=== PATIENT | female | born 1945 | race Two or more races ===

== ENCOUNTER → 2021-01-22 14:03 | Outpatient (BNVA) | payer MEDICARE, SELFPAY | PROVIDERS: Visit Provider Physician Assistant | DX: M16.11 Unilateral primary osteoarthritis, right hip (principal) | CPT/HCPCS: 99212 ==

== ENCOUNTER 2021-01-27 07:40 | Inpatient (IN) | payer MEDICARE, SELFPAY ==
--- NOTE | 2021-01-22 10:11 | P.CONAN_ITS ---
Documented by User: Surekhaher Cardenasney 01/26/21 10:34 HPI - Anesthesia Eval Consult details Narrative: 75yo F for Right Hip Total Replacement PCP cleared [facility] Past Medical History Medical History Arthritis COVID-19 vaccine series completed Depression Elevated cholesterol Hypothyroidism Family History Family history of problems with anesthesia: No Surgical History Surgical History History of appendectomy Hx of cataract extraction Hx of hysterectomy History of Problems with Anesthesia: No Social History Social History Are you a primary home visit field care manager to a significant other at home: No Do you presently have visiting nurse or other home services: No Smoking Status: Never smoker Use of substances other than those prescribed or required for medical reasons: No Have you been hit, kicked, punched, or otherwise hurt by someone within the past year? If so, by whom?: No [employer] Healthcare Practices: prayer Are you DNR?: No Advance Directives: No Advance Directives Information Provided: No Advance Directives on File: No Recently lost weight without trying: Unsure How much weight loss: 2-13 pounds Eating poorly because of decreased appetite: No Nutrition screen score: 3 Meds Allergies Allergy/AdvReac Type Severity Reaction Status Date / Time No Known Allergies Allergy Verified 01/27/21 08:03 Home Medications Medication Instructions Recorded Confirmed Last Taken Type atorvastatin 1 tab PO DAILY 01/21/21 01/21/21 Unknown History levothyroxine [Euthyrox] 1 tab PO DAILY 01/21/21 01/21/21 Unknown History venlafaxine 1 cap PO DAILY 01/21/21 01/21/21 Unknown History calcium carbonate-vitamin D3 1 tab PO DAILY 01/22/21 01/22/21 Unknown History [Calcium 600 + D(3)] vit C,U-Ei-mmujs-lutein-zeaxan 2 tab PO DAILY 01/22/21 01/22/21 Unknown History [PreserVision AREDS-2] Exam Exam Date and Time: January 22, 2021 1011 Pertinent Lab Results Pertinent Lab Results: Lab Results 01/22/21 01/22/21 01/22/21 Range/Units 12:30 13:35 13:35 WBC 6.6 (4.8-10.8) X10*3/uL RBC 4.33 (4.20-5.50) X10*6/uL Hgb 12.9 (12.0-16.0) g/dl Hct 39.1 (37-47) % MCV 90.3 (80-98) fL MCH 29.8 (27.0-33.0) pg MCHC 33.0 (31.0-35.0) g/dl RDW 12.4 (11.0-16.0) % Plt Count 324 (160-400) X10*3/uL MPV 10.5 (9.4-12.3) fL Immature Gran % (Auto) 0.2 (0.0-0.4) % Neut % (Auto) 77.5 H (45-73) % Lymph % (Auto) 16.4 L (20-40) % [place] % (Auto) 4.8 (2-11) % Eos % (Auto) 0.6 (0-4) % Baso % (Auto) 0.5 (0-2) % Lymph # (Auto) 1.1 L (1.2-4.9) X10*3/uL [place] # (Auto) 0.3 (0.1-1.2) X10*3/uL Eos # (Auto) 0.0 (0.0-0.4) X10*3/uL Baso # (Auto) 0.0 (0.0-0.2) X10*3/uL Abs Immat Gran (auto) 0.01 (0.00-0.03) X10*3/uL Absolute Neuts (auto) 5.2 (2.0-8.3) X10*3/uL Absolute Nucleated RBC 0.000 (0.0-0.012) X10*3/uL Nucleated RBC % (auto) 0.0 (0.0-0.2) /100WBC Sodium (135-145) mmol/L Potassium (3.3-5.1) mmol/L Chloride (96-108) mmol/L Carbon Dioxide (22-29) mmol/L Anion Gap (12-20) BUN (9-16) mg/dL Creatinine (0.5-1.4) mg/dL Estim Creat Clear Calc Estimated GFR Random Glucose (60-115) mg/dL Calcium (8.4-10.2) mg/dL Nasal Screen MRSA (PCR) NEGATIVE (Negative) Nasal S. aureus Screen NEGATIVE (Negative) Nasal MRSA/S.aureus Interp SEE NOTE Blood Type O Positive Antibody Screen NEGATIVE 01/22/21 Range/Units 13:35 WBC (4.8-10.8) X10*3/uL RBC (4.20-5.50) X10*6/uL Hgb (12.0-16.0) g/dl Hct (37-47) % MCV (80-98) fL MCH (27.0-33.0) pg MCHC (31.0-35.0) g/dl RDW (11.0-16.0) % Plt Count (160-400) X10*3/uL MPV (9.4-12.3) fL Immature Gran % (Auto) (0.0-0.4) % Neut % (Auto) (45-73) % Lymph % (Auto) (20-40) % [place] % (Auto) (2-11) % Eos % (Auto) (0-4) % Baso % (Auto) (0-2) % Lymph # (Auto) (1.2-4.9) X10*3/uL [place] # (Auto) (0.1-1.2) X10*3/uL Eos # (Auto) (0.0-0.4) X10*3/uL Baso # (Auto) (0.0-0.2) X10*3/uL Abs Immat Gran (auto) (0.00-0.03) X10*3/uL Absolute Neuts (auto) (2.0-8.3) X10*3/uL Absolute Nucleated RBC (0.0-0.012) X10*3/uL Nucleated RBC % (auto) (0.0-0.2) /100WBC Sodium 144 (135-145) mmol/L Potassium 4.2 (3.3-5.1) mmol/L Chloride 107 (96-108) mmol/L Carbon Dioxide 27 (22-29) mmol/L Anion Gap 14 (12-20) BUN 17 H (9-16) mg/dL Creatinine 0.90 (0.5-1.4) mg/dL Estim Creat Clear Calc 59.8 Estimated GFR > 60 Random Glucose 96 (60-115) mg/dL Calcium 10.0 (8.4-10.2) mg/dL Nasal Screen MRSA (PCR) (Negative) Nasal S. aureus Screen (Negative) Nasal MRSA/S.aureus Interp Blood Type Antibody Screen Narrative Narrative: EKG 12/2020 at outside provider: SR with LAE Airway Mallampati Class: II TM Dist: >3cm Neck ROM: Full Loose/Missing/Broken Teeth: Yes (1 x implant left upper molar, crowned molars) Heart: RRR Lungs: CTAB Assessment and Plan Assessment Anesthesia Assessment: Anesthesia Plan Discussed and PAT Visit Documented by User: Laxmi Kessler 01/27/21 10:02 [facility] Past Medical History Medical History Arthritis COVID-19 vaccine series completed Depression Elevated cholesterol Hypothyroidism Surgical History Surgical History History of appendectomy Hx of cataract extraction Hx of hysterectomy Social History Social History Are you a primary home visit field care manager to a significant other at home: No Do you presently have visiting nurse or other home services: No Smoking Status: Never smoker Use of substances other than those prescribed or required for medical reasons: No Have you been hit, kicked, punched, or otherwise hurt by someone within the past year? If so, by whom?: No Judaism Healthcare Practices: prayer Are you DNR?: No Advance Directives: No Advance Directives Information Provided: No Advance Directives on File: No Recently lost weight without trying: Unsure How much weight loss: 2-13 pounds Eating poorly because of decreased appetite: No Nutrition screen score: 3 Meds Allergies Allergy/AdvReac Type Severity Reaction Status Date / Time No Known Allergies Allergy Verified 01/27/21 08:03 Home Medications Medication Instructions Recorded Confirmed Last Taken Type atorvastatin 1 tab PO DAILY 01/21/21 01/21/21 Unknown History levothyroxine [Euthyrox] 1 tab PO DAILY 01/21/21 01/21/21 Unknown History venlafaxine 1 cap PO DAILY 01/21/21 01/21/21 Unknown History calcium carbonate-vitamin D3 1 tab PO DAILY 01/22/21 01/22/21 Unknown History [Calcium 600 + D(3)] vit C,H-Lh-gaflv-lutein-zeaxan 2 tab PO DAILY 01/22/21 01/22/21 Unknown History [PreserVision AREDS-2] Exam Airway Mallampati Class: III TM Dist: >3cm Neck ROM: Full Loose/Missing/Broken Teeth: No Assessment and Plan Assessment Anesthesia Assessment: Anesthesia Plan Discussed and Chart Reviewed Final Anesthetic Review NPO: Yes ASA Class: II Final Preanesthetic Review: Meds/Allgs Chart Reviewed, Consent Obtained/Reviewed and Anes Risks/Benef Reviewed Patient Risk: Low Procedure Risk: Intermediate Anesthetic Plan Anesthetic Plan: GA Disposition: Standard PACU
[2021-01-22 12:24] VITALS: BP 115/56; PULSE 91; RESP 16; O2SAT 97; BMI 27.7
[2021-01-22 13:56] LABS: Basophils Percent Auto 0.5 % (0-2); Eosinophils Percent Auto 0.6 % (0-4); Hematocrit 39.1 % (37-47); Hemoglobin 12.9 g/dl (12.0-16.0); Imm Gran Abs Auto 0.01 X10*3/uL (0.00-0.03); Imm Gran Pct Auto 0.2 % (0.0-0.4); Lymphocytes Absolute Auto 1.1 X10*3/uL (1.2-4.9); Lymphocytes Percent Auto 16.4 % (20-40); MANUAL DIFF FLAG NO; Mean Corpuscular Hemoglobin 29.8 pg (27.0-33.0); Mean Corpuscular Volume 90.3 fL (80-98); Mean Platelet Volume 10.5 fL (9.4-12.3); Monocytes Absolute Auto 0.3 X10*3/uL (0.1-1.2); Monocytes Percent Auto 4.8 % (2-11); Neutrophils Absolute Auto 5.2 X10*3/uL (2.0-8.3); Neutrophils Percent Auto 77.5 % (45-73); Platelet Count 324 X10*3/uL (160-400); Red Blood Count 4.33 X10*6/uL (4.20-5.50); Red Cell Distribution Width 12.4 % (11.0-16.0); White Blood Count 6.6 X10*3/uL (4.8-10.8)
[2021-01-22 14:42] LABS: Anion Gap 14 (12-20); Blood Urea Nitrogen 17 mg/dL (9-16); Carbon Dioxide 27 mmol/L (22-29); Chloride 107 mmol/L (96-108); Creatinine Clr Calc Pharmacy 59.8; Estimated Glomerular Filt Rate > 60; Glucose Random 96 mg/dL (60-115); Potassium 4.2 mmol/L (3.3-5.1); Sodium 144 mmol/L (135-145)
[2021-01-22 15:20] LABS: MRSA Nasal PCR NEGATIVE (Negative); SA Nasal PCR NEGATIVE (Negative)
[2021-01-27] VITALS (19 sets, daily range): BP systolic 117–176; BP diastolic 62–91; PULSE 87–104; RESP 10–20; TEMP 36.2–37.2; O2SAT 94–100
--- NOTE | ~2021-01-27 | XR_ITS ---
EXAMINATION: XR PELVIS CLINICAL INFORMATION: Right hip replacement COMPARISON: Previous right hip x-ray October 2019 TECHNIQUE: AP view of the pelvis. FINDINGS: There is a new right hip replacement in satisfactory position. No fracture or dislocation is seen. Left hip joint is unremarkable. Bones of the pelvis are unremarkable. There are postoperative changes to the soft tissues. XR/XR pelvis 1-2V IMPRESSION: Satisfactory appearance of right hip replacement.
[2021-01-27 08:30] LABS: COVID-19 Test Negative (Negative); IDNOW Serial# 08D9AD1C
[2021-01-27] MEDS: Gabapentin 600 MG TABLET PO (08:36)
[2021-01-27] MEDS: oxyCODONE HCl ER 10 MG TAB.ER.12H PO (08:37)
[2021-01-27] MEDS: Lactated Ringers 1,000 ML 100 ML IVCONT (08:59)
--- NOTE | 2021-01-27 09:52 | MHC.SHP ---
Pre-Procedural Eval Section A The patient is an INPATIENT: No Changes since office visit: Yes Patient answered all questions; No Cold of Flu in the past 2 weeks, No New Medical Problems and No Changes in Medication The History & Physical has been completed within 30 days and I have reviewed it.: Yes Section B Chief Complaint: RIGHT TOTAL HIP ARTHROPLASTY Allergies: Allergies Allergy/AdvReac Type Severity Reaction Status Date / Time No Known Allergies Allergy Verified 01/27/21 08:03 Plan I have reviewed the history and physical and performed a pertinent physical examination on my patient. No changes have occurred unless specified.
--- NOTE | 2021-01-27 12:37 | P.OP_ITS ---
Operative Note Operative Note Date of Service: 01/27/21 Narrative: Pre-op diagnosis: right hip OA Post-op diagnosis: same Procedure: Right EDI Implants: Trident2 50 w/ 10 post lip and 32 + 4 ceramic head and accolade2#3 Surgeon: Micah Miller MD Anesthesia: GETA and local Was an Acute Care Clinical Nurse Specialist used for this Procedure?: Yes Acute Care Clinical Nurse Specialist: Jeanine Bragg Estimated blood loss (mL): 150 IV fluids (mL): 1,000 Pathology: other Condition: stable Disposition: PACU Procedure in detail: Patient was brought to the operating room and placed in the left lateral decubitus position on the surgical table. She was prepped and draped in standard sterile fashion and a time out was called to indentify proper site, proper procedure and IV antibiotics per weight were administered. All bony prominences were well padded and the limb was prepped and draped in standard sterile fashion. Time-out was called to identify proper site procedure proper surgeon IV antibiotics and 1 g of trans to make acid were administered. I began by making a curvilinear incision over the posterolateral aspect of the greater trochanter. Dissection was taken down to the tensor fascia which was incised in line with the incision and a Charnley retractor was placed. Hip was internally rotated and the external rotators were identified. The vessels were cauterized and a full-thickness capsular/external rotator layer was developed starting just proximal to the piriformis. Dull Hohmann retractor was placed underneath the neck in the hip was dislocated. A neck cut was made 1 cm proximal to the lesser trochanter and the head and neck were removed and measured on the back table. Placed my anterior-posterior acetabular retractors and performed a labrectomy. The head was measured on the back tablt as a 44 and I started reaming with a 42 and then sequentially reamed up to a size __50_ and impacted a 50 cup at approximately 45 degrees of inclination and 25 degrees of version. I then placed a 10 degree posterior lipped liner and turned my attention to the femur. All I used cautery to identify the piriformis start site and used this as a starting point for my nasrinie cutter. I then used a Charnley awl to identify the canal and a curved curette to remove the lateral bone. I then sequentially broached in the patient's natural version to a size __3__ and placed my trial implants. I took the hip through range of motion with a +4 head and I was very happy with the stability and length. Therefore removed all instrumentation copiously irrigated placed my final femoral implant. I again took the hip through range of motion and was satisfied with the stability and length and placed my final +4 32 ceramic head and reduced the hip. I then irrigated for 3 minutes with iodine and placed 1 g of local TXA. I then performed a capsular closure with FiberWire, Jovan's fascia with 0 Vicryl, subcuticular with 2-0 vicryl and skin with urban. Patient was placed into a sterile dressing. Radiographs were obtained at the completion of the case and I was satisfied with the component position. Patient was extubated brought to the recovery room in stable condition.
[2021-01-27] MEDS: HYDROmorphone HCl 0.5 MG/0.5 ML SYRINGE IVPUSH (12:50)
[2021-01-27] MEDS: ceFAZolin Sodium/Dextrose,Iso 2 GM/50 ML PIGGYBACK IV (15:55)
[2021-01-27] MEDS: Dextrose 5 % and 0.45 % NaCl 1,000 ML 80 ML IVCONT (16:53)
[2021-01-27] MEDS: 0.9 % Sodium Chloride Flush 3 ML SYRINGE IVFLUSH (16:54)
--- NOTE | 2021-01-27 17:25 | P.CONIM_ITS ---
History of Present Illness Data of Consult Service Date: 01/27/21 Requesting physician: Micah Miller Primary Care Provider: Rosemary Almonte MD HPI Reason for consult: med consult 75-year-old female with hyperlipidemia, hypothyroidism, osteoarthritis of the hip that has not responded to medical therapy and therefore the patient was scheduled for operative fix today. She had a right total hip arthroplasty earlier today and is doing well postoperatively. She has no active complaint at this time: No shortness of breath, no chest pain, no fever. She is fully vaccinated with COVID vaccine as of middle of December. Review of Systems Review of Systems: Gen: no fever Resp: no sob, no cough CV: no chest, no MORALEZ, no leg edema GI: No n/v, no abd pain Neuro: No confusion MSK: pain in the operative hip REPLACED BY [facility] Medical History (Updated 01/27/21 @ 17:29 by Juan Moise MD) Arthritis COVID-19 vaccine series completed Depression Elevated cholesterol HLD (hyperlipidemia) Hypothyroidism Family history: reviewed and not pertinent Surgical History History of appendectomy Hx of cataract extraction Hx of hysterectomy Social History Are you a primary care attendant to a significant other at home: No Do you presently have visiting nurse or other home services: No Smoking Status: Never smoker Use of substances other than those prescribed or required for medical reasons: No Currently Displaying Signs/Symptoms of Drug Intoxication Withdrawal: No Have you been hit, kicked, punched, or otherwise hurt by someone within the past year? If so, by whom?: No [employer] Healthcare Practices: prayer Are you DNR?: No Advance Directives: No Advance Directives Information Provided: No Advance Directives on File: No Do you have thoughts of harming others: None Recently lost weight without trying: Unsure How much weight loss: 2-13 pounds Eating poorly because of decreased appetite: No Nutrition screen score: 3 Meds Allergies Allergy/AdvReac Type Severity Reaction Status Date / Time No Known Allergies Allergy Verified 01/27/21 08:03 Active Medications: Current Medications Generic Name Dose Route Start Last Admin Trade Name Freq PRN Reason Stop Dose Admin Acetaminophen 650 mg 01/27/21 16:30 Acetaminophen 325 Mg Tablet PO Q6H PRN Pain, Mild (Pain Scale 1-3) Celecoxib 200 mg 01/27/21 21:00 Celecoxib 200 Mg Capsule PO BID [facility] Docusate Sodium 100 mg 01/27/21 16:30 Docusate Sodium 100 Mg Capsule PO DAILY PRN Constipation Hydromorphone HCl 0.25 mg 01/27/21 16:30 Hydromorphone Hcl 0.5 Mg/0.5 Ml Syringe IVPUSH Q4H PRN Pain, Severe (Pain Scale 7-10) Dextrose/Sodium Chloride 1,000 mls @ 80 mls/hr 01/27/21 16:30 01/27/21 16:53 D51/2ns IVCONT 80 mls/hr .[id number] JULIO Administration Naloxone HCl 0.2 mg 01/27/21 16:30 Naloxone Hcl 0.4 Mg/Ml Vial IVPUSH Q2M PRN Excessive sedation or RR < 8 Ondansetron HCl 4 mg 01/27/21 16:30 Ondansetron Hcl 4 Mg/2 Ml Vial IVPUSH Q8H PRN Nausea and Vomiting Oxycodone HCl 10 mg 01/27/21 16:30 Oxycodone Hcl Immed Release 5 Mg Tablet PO Q4H PRN Pain, Moderate (Pain Scale 4-6 Sodium Chloride 3 ml 01/27/21 16:30 01/27/21 16:54 0.9 % Sodium Chloride Flush 3 Ml Syringe IVFLUSH 3 ml QSHIFT JULIO Administration Home Medications Medication Instructions Recorded Confirmed Last Taken Type atorvastatin 1 tab PO DAILY 01/21/21 01/21/21 Unknown History levothyroxine [Euthyrox] 1 tab PO DAILY 01/21/21 01/21/21 01/27/21 06:00 History venlafaxine 1 cap PO DAILY 01/21/21 01/21/21 Unknown History calcium carbonate-vitamin D3 1 tab PO DAILY 01/22/21 01/22/21 Unknown History [Calcium 600 + D(3)] vit C,W-Ci-qduay-lutein-zeaxan 2 tab PO DAILY 01/22/21 01/22/21 Unknown History [PreserVision AREDS-2] latanoprost 1 drp OPHTHALMIC-RIGHT BEDTIME 01/27/21 01/27/21 Unknown History Physical Exam Vital Signs and Narrative: Vital Signs: Last Vital Signs Temp 97.3 F 01/27/21 16:27 Pulse 94 01/27/21 16:27 Resp 20 01/27/21 16:27 BP 117/86 01/27/21 16:27 Pulse Ox 98 01/27/21 16:27 Body Mass Index 27.7 Constitutional Awake and Alert, No apparent distress Neck Supple, No lymphadenopathy Cardiovascular RRR, No M/R/G, S1 S2, No S3 S4, No pedal edema Respiratory Lungs clear, No respiratory distress Gastrointestinal Non tender, Non-distended Skin surgical wound dry clean and intact. Neurological Alert & oriented x3 Psychological Appropriate affect Results Labs CBC and Chem 7: 01/22/21 13:35 01/22/21 13:35 Labs: Laboratory Results - last 24 hr 01/27/21 07:50 COVID-19 (AL) Negative COVID-19 Clin Com See Note Imaging Radiologist's Impressions: Impressions Pelvis X-Ray 01/27/21 10:51 IMPRESSION: Satisfactory appearance of right hip replacement. Assessment and Plan (1) HLD (hyperlipidemia): Status: Acute 78/F with hypothyroidism, hyperlipidemia, history of osteoarthritis of the hip, status post EDI of the right today. 1/Hyhyroidism: Continue levothyroxine. 2/ Hyperlipidemia; continue Lipitor. 3/ s/p Hip arthroplasty--management per ortho
[2021-01-27] MEDS: Celecoxib 200 MG CAPSULE PO (20:30)
[2021-01-27] MEDS: oxyCODONE HCl Immed Release 5 MG TABLET 10 MG PO (21:22)
[2021-01-28] VITALS (9 sets, daily range): BP systolic 111–131; BP diastolic 52–76; PULSE 84–101; RESP 16–19; TEMP 36.2–37.7; O2SAT 92–97
[2021-01-28] MEDS: Dextrose 5 % and 0.45 % NaCl 1,000 ML 80 ML IVCONT ×2 (04:30→17:16)
[2021-01-28 06:41] LABS: MANUAL DIFF FLAG NO
[2021-01-28 06:46] LABS: Basophils Percent Auto 0.2 % (0-2); Eosinophils Percent Auto 0.2 % (0-4); Hematocrit 31.6 % (37-47); Hemoglobin 10.5 g/dl (12.0-16.0); Imm Gran Abs Auto 0.02 X10*3/uL (0.00-0.03); Imm Gran Pct Auto 0.2 % (0.0-0.4); Lymphocytes Absolute Auto 1.1 X10*3/uL (1.2-4.9); Lymphocytes Percent Auto 13.1 % (20-40); Mean Corpuscular HGB Conc 33.2 g/dl (31.0-35.0); Mean Corpuscular Hemoglobin 30.7 pg (27.0-33.0); Mean Corpuscular Volume 92.4 fL (80-98); Mean Platelet Volume 10.9 fL (9.4-12.3); Monocytes Absolute Auto 0.9 X10*3/uL (0.1-1.2); Monocytes Percent Auto 10.8 % (2-11); Neutrophils Absolute Auto 6.1 X10*3/uL (2.0-8.3); Neutrophils Percent Auto 75.5 % (45-73); Platelet Count 260 X10*3/uL (160-400); Red Blood Count 3.42 X10*6/uL (4.20-5.50)
[2021-01-28 07:30] LABS: Anion Gap 13 (12-20); Blood Urea Nitrogen 16 mg/dL (9-16); Calcium 8.3 mg/dL (8.4-10.2); Carbon Dioxide 27 mmol/L (22-29); Chloride 106 mmol/L (96-108); Creatinine Clr Calc Pharmacy 66.4; Estimated Glomerular Filt Rate > 60; Glucose Fasting 112 mg/dL (60-99); Potassium 4.4 mmol/L (3.3-5.1); Sodium 142 mmol/L (135-145)
[2021-01-28] MEDS: Celecoxib 200 MG CAPSULE PO ×2 (07:57→20:10)
[2021-01-28] MEDS: oxyCODONE HCl Immed Release 5 MG TABLET 10 MG PO ×3 (07:57→20:15)
[2021-01-28] MEDS: 0.9 % Sodium Chloride Flush 3 ML SYRINGE IVFLUSH (07:58)
--- NOTE | 2021-01-28 08:01 | P.PNOP_ITS ---
Subjective Subjective Date of Service: 01/28/21 Interval history: POD 1 s/p RT EDI No overnight events resting in bed, has been out of bed to use bathroom Pain is tolerable Denies cp/sob,dizziness Physical Exam Vital Signs: Vital Signs: Last Vital Signs Temp 98.7 F 01/28/21 07:47 Pulse 84 01/28/21 07:47 Resp 18 01/28/21 07:47 BP 120/60 01/28/21 07:47 Pulse Ox 95 01/28/21 07:47 Body Mass Index 27.7 Const: General: cooperative, healthy appearing and no acute distress Resp: Effort & Inspection: normal respiratory effort and able to speak in complete sentences Cardio: Rate: regular rate Peripheral pulses: Peripheral pulses 2+ through out GI: Palpation (GI): Soft to palpation Skin: General skin exam: no rashes or lesions noted Extrem: Other: Right hip bandage clean dry and intact. Abdi intact. No erythema or effusion. Calf supple nontender. Neurovascularly intact. Progress Note: A&P Assessment and plan (1) History of total right hip replacement: Status: Acute Assessment and Plan: * Continue pain mgmnt * Begin Aspirin for dvt ppx * begin PT for R EDI -posterior precautions * Dispo planning-Pending PT eval, pain mgmnt - STR Fall Risk Details Current Medications: Current Medications Generic Name Dose Route Start Last Admin Trade Name Freq PRN Reason Stop Dose Admin Acetaminophen 650 mg 01/27/21 16:30 Acetaminophen 325 Mg Tablet PO Q6H PRN Pain, Mild (Pain Scale 1-3) Celecoxib 200 mg 01/27/21 21:00 01/28/21 07:57 Celecoxib 200 Mg Capsule PO 200 mg BID JULIO Administration Docusate Sodium 100 mg 01/27/21 16:30 Docusate Sodium 100 Mg Capsule PO DAILY PRN Constipation Hydromorphone HCl 0.25 mg 01/27/21 16:30 Hydromorphone Hcl 0.5 Mg/0.5 Ml Syringe IVPUSH Q4H PRN Pain, Severe (Pain Scale 7-10) Dextrose/Sodium Chloride 1,000 mls @ 80 mls/hr 01/27/21 16:30 01/28/21 04:30 D51/2ns IVCONT 80 mls/hr .[id number] JULIO Administration Naloxone HCl 0.2 mg 01/27/21 16:30 Naloxone Hcl 0.4 Mg/Ml Vial IVPUSH Q2M PRN Excessive sedation or RR < 8 Ondansetron HCl 4 mg 01/27/21 16:30 Ondansetron Hcl 4 Mg/2 Ml Vial IVPUSH Q8H PRN Nausea and Vomiting Oxycodone HCl 10 mg 01/27/21 16:30 01/28/21 07:57 Oxycodone Hcl Immed Release 5 Mg Tablet PO 10 mg Q4H PRN Administration Pain, Moderate (Pain Scale 4-6 Sodium Chloride 3 ml 01/27/21 16:30 01/28/21 07:58 0.9 % Sodium Chloride Flush 3 Ml Syringe IVFLUSH 3 ml QSHIFT JULIO Administration Time Spent With Patient Time: Total time spent is greater than 50% in coordination of care (as documented) at patient's floor/unit and/or counseling patient: Time with patient: less than 15 minutes
--- NOTE | 2021-01-28 09:48 | PM.PNORT ---
Subjective Subjective Date of Service: 01/28/21 Interval history: POD 1 status post right total hip arthroplasty. No overnight events. She has been out of bed ambulating to the restroom. Pain is tolerable. Denies shortness of breath chest pain or palpitations. Physical Exam Vital Signs: Vital Signs: Last Vital Signs Temp 98.7 F 01/28/21 07:47 Pulse 84 01/28/21 08:32 Resp 18 01/28/21 07:47 BP 120/60 01/28/21 08:32 Pulse Ox 95 01/28/21 08:32 Body Mass Index 27.7 Const: General: cooperative, healthy appearing and no acute distress Resp: Effort & Inspection: normal respiratory effort and able to speak in complete sentences Cardio: Rate: regular rate Peripheral pulses: Peripheral pulses 2+ throughout GI: Palpation (GI): Soft to palpation Skin: General skin exam: no rashes or lesions noted Extrem: Other: Right hip bandage clean dry and intact. [place] intact. No erythema or effusion. Calf supple nontender. Neurovascularly intact. Progress Note: A&P Assessment and plan (1) History of total right hip replacement: Status: Acute Fall Risk Details Current Medications: Current Medications Generic Name Dose Route Start Last Admin Trade Name Freq PRN Reason Stop Dose Admin Acetaminophen 650 mg 01/27/21 16:30 Acetaminophen 325 Mg Tablet PO Q6H PRN Pain, Mild (Pain Scale 1-3) Aspirin 325 mg 01/28/21 09:00 Aspirin 325 Mg Tablet PO BID JULIO Celecoxib 200 mg 01/27/21 21:00 01/28/21 07:57 Celecoxib 200 Mg Capsule PO 200 mg BID JULIO Administration Docusate Sodium 100 mg 01/27/21 16:30 Docusate Sodium 100 Mg Capsule PO DAILY PRN Constipation Hydromorphone HCl 0.25 mg 01/27/21 16:30 Hydromorphone Hcl 0.5 Mg/0.5 Ml Syringe IVPUSH Q4H PRN Pain, Severe (Pain Scale 7-10) Dextrose/Sodium Chloride 1,000 mls @ 80 mls/hr 01/27/21 16:30 01/28/21 04:30 D51/2ns IVCONT 80 mls/hr .[id number] JULIO Administration Naloxone HCl 0.2 mg 01/27/21 16:30 Naloxone Hcl 0.4 Mg/Ml Vial IVPUSH Q2M PRN Excessive sedation or RR < 8 Ondansetron HCl 4 mg 01/27/21 16:30 Ondansetron Hcl 4 Mg/2 Ml Vial IVPUSH Q8H PRN Nausea and Vomiting Oxycodone HCl 10 mg 01/27/21 16:30 01/28/21 07:57 Oxycodone Hcl Immed Release 5 Mg Tablet PO 10 mg Q4H PRN Administration Pain, Moderate (Pain Scale 4-6 Oxycodone HCl 10 mg 01/28/21 10:00 Oxycodone Hcl Er 10 Mg Tab.Er.12h PO BID JULIO Sodium Chloride 3 ml 01/27/21 16:30 01/28/21 07:58 0.9 % Sodium Chloride Flush 3 Ml Syringe IVFLUSH 3 ml QSHIFT JULIO Administration Time Spent With Patient Time: Total time spent is greater than 50% in coordination of care (as documented) at patient's floor/unit and/or counseling patient:
--- NOTE | 2021-01-28 10:11 | HO.PM.IMPN ---
Subjective Subjective Date of Service: 01/28/21 Interval History: seen in f/u for post op med management. Pain is controlled Review of Systems Gen: no fever Resp: no sob, no cough CV: no chest, no MORALEZ, no leg edema GI: No n/v, no abd pain Neuro: No confusion MSK: pain in the operative hip Physical Exam Vital Signs: Vital Signs: Last Vital Signs Temp 98.7 F 01/28/21 07:47 Pulse 84 01/28/21 08:32 Resp 18 01/28/21 07:47 BP 120/60 01/28/21 08:32 Pulse Ox 95 01/28/21 08:32 Body Mass Index 27.7 General: AO X 3, no acute distress Resp: CTA bilateral CVS: S1,S2,RRR GI: +BS, NT, no distention Skin: No rash, surgical wound d/c/i Neuro: motor grossly intact Psych: appropriate affect Objective Data Current Medications Generic Name Dose Route Start Last Admin Trade Name Freq PRN Reason Stop Dose Admin Acetaminophen 650 mg 01/27/21 16:30 Acetaminophen 325 Mg Tablet PO Q6H PRN Pain, Mild (Pain Scale 1-3) Aspirin 325 mg 01/28/21 09:00 Aspirin 325 Mg Tablet PO BID JULIO Celecoxib 200 mg 01/27/21 21:00 01/28/21 07:57 Celecoxib 200 Mg Capsule PO 200 mg BID JULIO Administration Docusate Sodium 100 mg 01/27/21 16:30 Docusate Sodium 100 Mg Capsule PO DAILY PRN Constipation Hydromorphone HCl 0.25 mg 01/27/21 16:30 Hydromorphone Hcl 0.5 Mg/0.5 Ml Syringe IVPUSH Q4H PRN Pain, Severe (Pain Scale 7-10) Dextrose/Sodium Chloride 1,000 mls @ 80 mls/hr 01/27/21 16:30 01/28/21 04:30 D51/2ns IVCONT 80 mls/hr .[id number] JULIO Administration Naloxone HCl 0.2 mg 01/27/21 16:30 Naloxone Hcl 0.4 Mg/Ml Vial IVPUSH Q2M PRN Excessive sedation or RR < 8 Ondansetron HCl 4 mg 01/27/21 16:30 Ondansetron Hcl 4 Mg/2 Ml Vial IVPUSH Q8H PRN Nausea and Vomiting Oxycodone HCl 10 mg 01/27/21 16:30 01/28/21 07:57 Oxycodone Hcl Immed Release 5 Mg Tablet PO 10 mg Q4H PRN Administration Pain, Moderate (Pain Scale 4-6 Oxycodone HCl 10 mg 01/28/21 10:00 Oxycodone Hcl Er 10 Mg Tab.Er.12h PO BID JULIO Sodium Chloride 3 ml 01/27/21 16:30 01/28/21 07:58 0.9 % Sodium Chloride Flush 3 Ml Syringe IVFLUSH 3 ml QSHIFT JULIO Administration Labs CBC & Chem 7: 01/28/21 06:10 01/28/21 06:10 Assessment and Plan (1) HLD (hyperlipidemia): Status: Acute Assessment and Plan: 78/F with hypothyroidism, hyperlipidemia, history of osteoarthritis of the hip, status post EDI of the right today. 1/Hyhyroidism: Continue levothyroxine. 2/ Hyperlipidemia; continue Lipitor. 3/ s/p Hip arthroplasty--management per ortho if no new issues, will sign off later today
[2021-01-28] MEDS: oxyCODONE HCl ER 10 MG TAB.ER.12H PO ×2 (10:53→20:10)
[2021-01-28] MEDS: Aspirin 325 MG TABLET PO ×2 (10:53→20:08)
--- NOTE | 2021-01-28 11:13 | HO.POSTANES ---
Post Anesthesia Evaluation Post Anesthesia Evaluation Vital Signs: Vital Signs Temp Pulse Resp BP Pulse Ox 01/28/21 08:32 84 120/60 95 01/28/21 07:47 98.7 F 84 18 120/60 95 01/28/21 04:00 97.3 F 92 19 131/76 97 01/28/21 00:00 97.6 F 98 19 129/71 95 Anesthesia: General LMA Mental Status: Awake Pain Control: Satisfactory Nausea/Vomiting: None Hydration: Adequate Anesthesia-Related Issues: No Anes. Related Issues
--- NOTE | 2021-01-28 11:28 | MHC.CM.PN ---
NURSE TRANSPORTATION COORDINATOR NOTE ELECTRONIC MEDICAL RECORD =REVIEWED ALONG WITH CASE DISCUSSED WITH STAFF NURSE AND HOSPITALIST ON MULTIPLE DISCIPLINARY ROUNDS AND PHYSICAL THERAPIST WITH PATIENT EXPLAINED THE ROLE OF THE NURSE CNA CAREGIVER IN THE TRANSITION FROM THE HOSPITAL TO HOME, AND EDUCATED ABOUT THE IMPORTANCE OF HAVING A HEALTH CARE PROXY. PATIENT REPORTED THAT SHE HAS A HEALTH CARE PROXY NAMING [facility]. I CALLED TO HER PRIMARY AND THEY DO NOT HAVE A COPY. PATIENT EXPRESSED CONCERN THAT SHE HAD NOT BEEN STARTED ON HER HOME MEDICATIONS, SYNTHROID AND LIPITOR AND EFFECTOR I DISCUSSED THIS WITH THE STAFF NURSE IN PATIENTS ROOM AND ALSO MENTIONED IT TO THE HOSPITALIST ON MULTIDISCIPLINARY ROUNDS. SHE ALSO EXPRESSED FRUSTRATION IN A DELAY WITH GETTING HER PRESCRIBED PAIN MEDICATION, LAST EVENING , SHE REPORTED THAT SHE SPOKE WITH DR SINGER REGARDING THIS.SHE REPORTED THAT SHE LIVES ALONE SHE HAS FRIENDS THAT CAN ASSIST HER IN GETTING GROCERIES OBTAINING HER MEDICATIONS AND TAKING HER TO PHYSICIANS APPOINTMENTS, SHE REPORTED THAT HER PAIN IN HER HIP PREVENTED HER FROM DRIVING FOR THE LAST TWO MONTHS , SHE REPORTED THAT SHE LIVES ON [place]. SHE ALSO INFORMED ME THAT SHE [facility] AND DECEMBER 172020 SHE WAS ALSO COVID NEGATIVE ON ADMISSION HERE , SHE IS NOW pOST OP DAY 1 R-TOTAL HIP ARTHROPLASTY, SHE HAS CALLED TO ARIANNA AT [facility], WAS WELCOMED BY HER AND DR RAYGOZA TOLD HER HE WAS SENDING HER THERE . I EXPLAINED TO HER THAT I WOULD BE SENDING CLINICALS TO [facility] INCLUDING PT/OT EVALUATION AND ASSESSMENTS. SHE WILL NEED [facility] INS AUTHORIZATION.. SHE HAD BEEN INDEPENDENT IN HER ADLS AND MOBILITY. AT HER OWN PACE DISCHARGE PLAN TO SHORT TERM REHAB, PATIENT REQUESTING TO GO TO [facility]. INIATED REFERRAL TO THEM PCP DR MIRNA ASHRAF PATIENT TO CALL FOR POST HOSPITAL DISCHARGE AND REHAB FOR FOLLOW UP ORTHOPEDIC SURGICAL FOLLOW UP TRANSPORTATION ELSIE MICHELLE ([facility] CONTRACTED [employer])
[2021-01-28] MEDS: Levothyroxine Sodium 125 MCG TABLET PO (12:44)
[2021-01-28] MEDS: Venlafaxine HCl ER 37.5 MG CAP.ER.24H PO (12:44)
[2021-01-29 04:00] VITALS: BP 132/68; PULSE 100; RESP 19; TEMP 36.3; O2SAT 95
[2021-01-29] MEDS: Dextrose 5 % and 0.45 % NaCl 1,000 ML 80 ML IVCONT (04:13)
[2021-01-29 07:26] LABS: Hematocrit 28.1 % (37-47); Imm Gran Abs Auto 0.05 X10*3/uL (0.00-0.03); Imm Gran Pct Auto 0.6 % (0.0-0.4); MANUAL DIFF FLAG SCAN; Mean Corpuscular Volume 94.3 fL (80-98); PLT CLUMP 1; Red Blood Count 2.98 X10*6/uL (4.20-5.50); SCAN SMEAR FLAG 1
[2021-01-29 07:28] LABS: Basophils Percent Auto 0.5 % (0-2); Eosinophils Absolute Auto 0.3 X10*3/uL (0.0-0.4); Eosinophils Percent Auto 3.9 % (0-4); Lymphocytes Percent Auto 12.1 % (20-40); Mean Corpuscular Hemoglobin 30.2 pg (27.0-33.0); Monocytes Absolute Auto 0.7 X10*3/uL (0.1-1.2); Monocytes Percent Auto 9.1 % (2-11); Neutrophils Absolute Auto 5.9 X10*3/uL (2.0-8.3); Neutrophils Percent Auto 73.8 % (45-73); Red Cell Distribution Width 13.2 % (11.0-16.0)
[2021-01-29 07:49] LABS: Platelet Count 175 X10*3/uL (160-400)
[2021-01-29 07:50] LABS: SLIDE REVIEW VERIFIED
[2021-01-29 07:57] LABS: Anion Gap 11 (12-20); Blood Urea Nitrogen 19 mg/dL (9-16); Carbon Dioxide 26 mmol/L (22-29); Chloride 104 mmol/L (96-108); Creatinine Clr Calc Pharmacy 65.6; Estimated Glomerular Filt Rate > 60; Glucose Fasting 109 mg/dL (60-99); Potassium 4.4 mmol/L (3.3-5.1); Sodium 137 mmol/L (135-145)
[2021-01-29 08:00] VITALS: BP 117/59; PULSE 106; RESP 18; TEMP 37.2; O2SAT 96
[2021-01-29] MEDS: Aspirin 325 MG TABLET PO (08:29)
[2021-01-29] MEDS: Celecoxib 200 MG CAPSULE PO (08:29)
[2021-01-29] MEDS: Calcium + Vitamin D 250 MG TABLET 625 MG PO (08:30)
[2021-01-29] MEDS: Atorvastatin Calcium 40 MG TABLET PO (08:31)
[2021-01-29] MEDS: oxyCODONE HCl Immed Release 5 MG TABLET 10 MG PO ×2 (08:31→13:41)
[2021-01-29] MEDS: Venlafaxine HCl ER 37.5 MG CAP.ER.24H PO (08:31)
[2021-01-29] MEDS: oxyCODONE HCl ER 10 MG TAB.ER.12H PO (08:31)
[2021-01-29] MEDS: Levothyroxine Sodium 125 MCG TABLET PO (08:31)
[2021-01-29] MEDS: 0.9 % Sodium Chloride Flush 3 ML SYRINGE IVFLUSH (08:32)
[2021-01-29 09:09] VITALS: BP 117/59; PULSE 106; O2SAT 96
--- NOTE | 2021-01-29 09:18 | HO.PM.IMPN ---
Subjective Subjective Date of Service: 01/29/21 Interval History: seen in f/u for post op med management. Pain is controlled and doing well with ambulation, Review of Systems Gen: no fever Resp: no sob, no cough CV: no chest, no MORALEZ, no leg edema GI: No n/v, no abd pain Neuro: No confusion MSK: pain in the operative hip Physical Exam Vital Signs: Vital Signs: Last Vital Signs Temp 98.9 F 01/29/21 08:00 Pulse 106 H 01/29/21 09:09 Resp 18 01/29/21 08:00 BP 117/59 L 01/29/21 09:09 Pulse Ox 96 01/29/21 09:09 Body Mass Index 27.7 General: AO X 3, no acute distress Resp: CTA bilateral CVS: S1,S2,RRR GI: +BS, NT, no distention Skin: wound dressing intact Neuro: motor grossly intact Psych: appropriate affect Objective Data Current Medications Generic Name Dose Route Start Last Admin Trade Name Freq PRN Reason Stop Dose Admin Acetaminophen 650 mg 01/27/21 16:30 Acetaminophen 325 Mg Tablet PO Q6H PRN Pain, Mild (Pain Scale 1-3) Aspirin 325 mg 01/28/21 09:00 01/29/21 08:29 Aspirin 325 Mg Tablet PO 325 mg BID JULIO Administration Atorvastatin Calcium 40 mg 01/29/21 09:00 01/29/21 08:31 Atorvastatin Calcium 40 Mg Tablet PO 40 mg DAILY JULIO Administration Calcium Carbonate/Cholecalciferol 625 mg 01/29/21 09:00 01/29/21 08:30 Calcium + Vitamin D 250 Mg Tablet PO 625 mg DAILY JULIO Administration Celecoxib 200 mg 01/27/21 21:00 01/29/21 08:29 Celecoxib 200 Mg Capsule PO 200 mg BID JULIO Administration Docusate Sodium 100 mg 01/27/21 16:30 Docusate Sodium 100 Mg Capsule PO DAILY PRN Constipation Hydromorphone HCl 0.25 mg 01/27/21 16:30 Hydromorphone Hcl 0.5 Mg/0.5 Ml Syringe IVPUSH Q4H PRN Pain, Severe (Pain Scale 7-10) Dextrose/Sodium Chloride 1,000 mls @ 80 mls/hr 01/27/21 16:30 01/29/21 04:13 D51/2ns IVCONT 80 mls/hr .[id number] JULIO Administration Latanoprost 1 drop 01/28/21 21:00 01/28/21 20:11 Latanoprost 0.005 % Ophth [place] 2.5 Ml Drops EYE-RIGHT Not Given BEDTIME JULIO Levothyroxine Sodium 125 mcg 01/28/21 11:00 01/29/21 08:31 Levothyroxine Sodium 125 Mcg Tablet PO 125 mcg DAILY JULIO Administration Multivitamins/Minerals 1 tab 01/29/21 09:00 01/29/21 08:29 Vits A,C,E/Lutein/Minerals Tablet PO 1 tab DAILY JULIO Administration Naloxone HCl 0.2 mg 01/27/21 16:30 Naloxone Hcl 0.4 Mg/Ml Vial IVPUSH Q2M PRN Excessive sedation or RR < 8 Ondansetron HCl 4 mg 01/27/21 16:30 Ondansetron Hcl 4 Mg/2 Ml Vial IVPUSH Q8H PRN Nausea and Vomiting Oxycodone HCl 10 mg 01/27/21 16:30 01/29/21 08:31 Oxycodone Hcl Immed Release 5 Mg Tablet PO 10 mg Q4H PRN Administration Pain, Moderate (Pain Scale 4-6 Oxycodone HCl 10 mg 01/28/21 10:00 01/29/21 08:31 Oxycodone Hcl Er 10 Mg Tab.Er.12h PO 10 mg BID JULIO Administration Sodium Chloride 3 ml 01/27/21 16:30 01/29/21 08:32 0.9 % Sodium Chloride Flush 3 Ml Syringe IVFLUSH 3 ml QSHIFT JULIO Administration Venlafaxine HCl 37.5 mg 01/28/21 11:00 01/29/21 08:31 Venlafaxine Hcl Er 37.5 Mg Cap.Er.24h PO 37.5 mg DAILY JULIO Administration Labs CBC & Chem 7: 01/29/21 06:06 01/29/21 06:06 Assessment and Plan (1) HLD (hyperlipidemia): Status: Acute Assessment and Plan: 78/F with hypothyroidism, hyperlipidemia, history of osteoarthritis of the hip, status post EDI of the right today. 1/Hyhyroidism: Continue levothyroxine. 2/ Hyperlipidemia; continue Lipitor. 3/ s/p Hip arthroplasty--management per ortho To resume prior home meds upon discharge, signign off
--- NOTE | 2021-01-29 11:26 | MHC.CM.PN ---
Addendum entered by Natalia Gonzalez 01/29/21 14:48: initially health [employer] insurance denied her to go to short term rehab it was requested to go to physicians advisor at [facility] and constantine gave ins auth , patient was anxiously awaiting this decision and is very pleased with the services she has received across all staff here post surgical r-jamison. new health care proxy completed naming epi kelly as her agent , coriginal and 4 copies given to her , copy of health care proxy and covid 19 vaccination record sent via all scripts to roseline simental , contacted the physician to inform them we have approval and notifed [employer] for transportation nursing staff to have completed covid 19 rapid swab discharge to [facility] for str via [employer] wheelchair [employer] Original Note: NURSE ENDLESS BED DRUM SANDER NOTE ELECTRONIC MEDICAL RECORD REVIEWED ALONG WITH CASE DISCUSSED WITH STAFF NURSE AND ON MULTIPLE DISCIPLIANRY ROUNDS, PATIENT HAS BEEN CLINICALLY ACCEPTED BY [facility] AND NOW AWAITING INSURANCE AUTHORIZATION, WILL FAX COVID VACINATION CARD AND HEALTH CARE PROXY VIA [employer] , PATIENT WILL BE GOING BY [employer] (SPOKE WITH [facility] DISPATCHER KEVIN AND HE CHECKED WITH HIS VACUUM SPINDLE SANDER REBECCA SINCE [employer] DOES NOT PAY FOR CHAIR VAN , THEY CAN NOT PROVIDE SERVI TO BE TRANSPORTED VIA [employer] [facility] SPOKE WITH [facility] WITH ACTION THEY WILL PROIVDE THESE SERVICES DISCHARGE PLAN SHORT TERM REHAB AT [facility],
[2021-01-29 12:00] VITALS: BP 130/60; PULSE 86; RESP 17; TEMP 36.1; O2SAT 96
[2021-01-29 13:37] VITALS: BP 130/60; PULSE 86; O2SAT 96
--- NOTE | 2021-01-29 14:21 | P.DS_ITS ---
DS: Providers Provider Date of Service: 01/29/21 Date of admission: 01/27/21 07:40 Primary care physician: Rosemary Almonte MD Consults: 01/27/21 16:30 Consult to Hospitalist Routine Consulting Provider: Hospitalist Reason For Exam: post op medical management DS: Diagnosis Discharge Diagnosis (1) History of total right hip replacement: Status: Acute Problem details: This is a 75-year-old female who presented to our office with ongoing right hip pain. She had failed all conservative measures and continued to have difficulty with daily activities and ambulation. She had consented to move forward with right total hip arthroplasty. DS: Medications Discharge Medications Home Medications: Home Medications Medication Instructions Recorded Confirmed atorvastatin 1 tab PO DAILY 01/21/21 01/21/21 levothyroxine [Euthyrox] 1 tab PO DAILY 01/21/21 01/21/21 venlafaxine 1 cap PO DAILY 01/21/21 01/21/21 PreserVision AREDS-2 2 tab PO DAILY 01/22/21 01/22/21 calcium carbonate-vitamin D3 1 tab PO DAILY 01/22/21 01/22/21 [Calcium 600 + D(3)] latanoprost 1 drp OPHTHALMIC-RIGHT BEDTIME 01/27/21 01/27/21 Previous Rx's Medication Instructions Recorded acetaminophen 650 mg PO Q6H PRN 30 Days #240 tab 01/28/21 aspirin 325 mg PO BID 42 Days #84 tab 01/28/21 docusate sodium 100 mg PO DAILY PRN 14 Days #14 cap 01/28/21 oxycodone 10 mg PO Q4H PRN 7 Days #42 tab 01/29/21 DS: Summary Hospital Course Hospital Course: The patient underwent a successful right total hip arthroplasty, was transferred to PACU and then to the floor to recover. During their stay, their vitals were s table, afebrile at 97.0 . Labs were unremarkable, H/H 9.0/28 point. POD 1 she was started on aspirin for DVT ppx, they also received physical therapy and occupational therapy services twice a day. Prior to discharge, their dressing was change, incision clean dry and intact, new Aquacel dressing applied and the plan was to be discharged to short-term rehab LENGTH OF STAY LESS THAN 30 DAYS Time Spent with Patient Time attestation: Total time spent providing and/or coordinating discharge services: Discharge coordination time: Less than 30 minutes Quality: Stroke Does the patient have a stroke diagnosis?: No Physical Exam Vital Signs: Vital Signs: Last Vital Signs Temp 97.0 F 01/29/21 12:00 Pulse 86 01/29/21 13:37 Resp 17 01/29/21 12:00 BP 130/60 01/29/21 13:37 Pulse Ox 96 01/29/21 13:37 Body Mass Index 27.7 Const: General: cooperative, healthy appearing and no acute distress Resp: Effort & Inspection: normal respiratory effort and able to speak in complete sentences Cardio: Rate: regular rate Peripheral pulses: Peripheral pulses 2+ throughout GI: Palpation (GI): Soft to palpation Skin: General skin exam: no rashes or lesions noted Extrem: Other: Right hip incision clean dry and intact. [place] intact. No e rythema or effusion. Calf supple nontender. Neurovascularly intact. DS: Data Data Completed and Pending Pending studies at discharge: Pending at discharge 01/27/21 12:08 Surgical [PTH] Routine Labs on day of discharge: Laboratory Results - last 24 hr 01/29/21 01/29/21 06:06 06:06 WBC 8.0 RBC 2.98 L Hgb 9.0 L Hct 28.1 L MCV 94.3 MCH 30.2 MCHC 32.0 RDW 13.2 Plt Count 175 D MPV Not Reportable Immature Gran % (Auto) 0.6 H Neut % (Auto) 73.8 H Lymph % (Auto) 12.1 L [place] % (Auto) 9.1 Eos % (Auto) 3.9 Baso % (Auto) 0.5 Lymph # (Auto) 1.0 L [place] # (Auto) 0.7 Eos # (Auto) 0.3 Baso # (Auto) 0.0 Abs Immat Gran (auto) 0.05 H Absolute Neuts (auto) 5.9 Absolute Nucleated RBC 0.000 Nucleated RBC % (auto) 0.0 Smear Tech's Comments VERIFIED Sodium 137 Potassium 4.4 Chloride 104 Carbon Dioxide 26 Anion Gap 11 L BUN 19 H Creatinine 0.82 Estim Creat Clear Calc 65.6 Estimated GFR > 60 Fasting Glucose 109 H Calcium 8.0 L Discharge Plan Discharge Patient Disposition: Xfer SNF Discharge Diagnosis: s/p RT EDI Referrals: [facility] [Other] - 1 Week (TO BE TRANSPORT) Jeanine Bragg PA-C [[facility]] - 2 Weeks (02/12/21 1:45 [facility] [place] [facility] Jeanine Bragg PA-C[place] Discharge Medications: New docusate sodium 100 mg Capsule 100 mg PO DAILY PRN (Reason: Constipation) 14 Days Qty: 14 RF: 0 aspirin 325 mg Tablet 325 mg PO BID 42 Days Qty: 84 RF: 0 acetaminophen 325 mg Tablet 650 mg PO Q6H PRN (Reason: Pain, Mild (Pain Scale 1-3)) 30 Days Qty: 240 RF: 0 oxycodone 10 mg tablet 10 mg PO Q4H PRN (Reason: Pain, Moderate (Pain Scale 4-6) 7 Days Qty: 42 RF: 0 Continued atorvastatin 40 mg tablet 1 tab PO DAILY RF: 0 venlafaxine 37.5 mg capsule,extended release 24hr 1 cap PO DAILY RF: 0 levothyroxine [Euthyrox] 125 mcg tablet 1 tab PO DAILY RF: 0 calcium carbonate-vitamin D3 [Calcium 600 + D(3)] 600 mg(1,500mg) -400 unit Tablet 1 tab PO DAILY RF: 0 PreserVision AREDS-2 250-90-40-1 mg Capsule 2 tab PO DAILY RF: 0 latanoprost 0.005 % drops 1 drp ophthalmic-Right BEDTIME RF: 0 Discharge Orders: Discharge Order (Routine); Ordered 01/29/21 Ordered By: Jeanine Bragg Diet: regular diet Activity on Discharge: Use cane or walker Stand Alone Forms: Patient Portal Discharge page Care Plan Goals: Restore function of joint Health Concerns: n/a Plan of Treatment: Physical Therapy Pain management DVT prophylaxis Assessment: * Physical Therapy for Total hip arthroplasty: posterior precautions, gait training, ROM, strength * Limit stair climbing * No showering, no tub bath-keep dressing clean, dry and intact * No driving x6 weeks * Continue Aspirin 325mg tabs twice a day for 6 weeks * Follow up [place] [facility] [place] [facility] [place] 2 [place]
[2021-01-29 15:16] LABS: COVID-19 Test Negative (Negative)
== END 2021-01-29 15:39 | disposition skilled nursing facility (03) | DRG 470 ==
LOC: HO.SSSA 07:51 → HO.S3 13:44
PROVIDERS: Physician Assistant; Admitting Provider Orthopaedic Surgery; PCP Internal Medicine; Visit Provider Orthopaedic Surgery
PROC: 0SR90JA Replacement of Right Hip Joint with Synthetic Substitute, Uncemented, Open Approach (ICD-10-PCS; CPT 27130; principal; 2021-01-27 09:30)
DX: M16.11 Unilateral primary osteoarthritis, right hip (principal); E03.9 Hypothyroidism, unspecified; E78.5 Hyperlipidemia, unspecified; F32.9 Major depressive disorder, single episode, unspecified; Z20.822 Contact with and (suspected) exposure to COVID-19; Z79.890 Hormone replacement therapy; Z79.899 Other long term (current) drug therapy
CPT/HCPCS: 27130; 36415; 72170; 80048; 85025; 86850; 86900; 86901; 87635; 87640; 87641; 88304; 88311; 97110; 97116; 97162; 97166; 97535; C1713; C1776; J0131; J0690; J1100; J1170; J2250; J2370; J2405; J2550; J3010

== ENCOUNTER → 2021-02-12 13:45 | Outpatient (BNVA) | payer MEDICARE, SELFPAY | PROVIDERS: PCP Internal Medicine; Visit Provider Physician Assistant | DX: Z47.1 Aftercare following joint replacement surgery (principal); Z96.641 Presence of right artificial hip joint | CPT/HCPCS: 99212 ==

== ENCOUNTER 2021-03-12 11:44 | Outpatient (REF) | payer MEDICARE, SELFPAY ==
--- NOTE | ~2021-03-12 | XR_ITS ---
EXAMINATION: CR X-RAY PELVIS AND RIGHT HIP CLINICAL INFORMATION: Right hip and pelvic pain. COMPARISON: None TECHNIQUE: 2 views of the right hip and a single view of the pelvis were obtained. FINDINGS: The patient is status post right hip arthroplasty showing good anatomic alignment with no evidence for hardware malfunction. Minimal left hip degenerative joint changes are seen. The visualized pelvis is intact. There is no acute fracture or dislocation. The soft tissues are unremarkable. XR/XR hip RT 1V IMPRESSION: No hardware or acute abnormality.
--- NOTE | ~2021-03-12 | XR_ITS ---
EXAMINATION: CR X-RAY PELVIS AND RIGHT HIP CLINICAL INFORMATION: Right hip and pelvic pain. COMPARISON: None TECHNIQUE: 2 views of the right hip and a single view of the pelvis were obtained. FINDINGS: The patient is status post right hip arthroplasty showing good anatomic alignment with no evidence for hardware malfunction. Minimal left hip degenerative joint changes are seen. The visualized pelvis is intact. There is no acute fracture or dislocation. The soft tissues are unremarkable. XR/XR pelvis 1-2V IMPRESSION: No hardware or acute abnormality.
== END 2021-03-12 11:45 | disposition home or self-care (01) ==
LOC: HO.HOSX 11:44
PROVIDERS: Visit Provider Orthopaedic Surgery
DX: T84.84XA Pain due to internal orthopedic prosthetic devices, implants and grafts, initial encounter (principal); Z96.641 Presence of right artificial hip joint
CPT/HCPCS: 72170; 73501; 73502; 99212

== ENCOUNTER 2021-05-04 08:17 | Outpatient (REF) | payer MEDICARE, SELFPAY ==
--- NOTE | ~2021-05-04 | XR_ITS ---
EXAMINATION: XR PELVIS CLINICAL INFORMATION: Pain. COMPARISON: Pelvic radiographs dated 03/12/2021. TECHNIQUE: AP view the pelvis. FINDINGS: Total right hip arthroplasty. No acute hardware or osseous fracture. No perihardware lucency to suggest loosening or infection. Mild left hip joint space narrowing with small marginal aspects, unchanged. No abnormal soft tissue calcification. XR/XR pelvis 1-2V IMPRESSION: Total right hip arthroplasty without evidence of complication. Mild left hip posterior arthritis, unchanged.
== END 2021-05-04 08:18 | disposition home or self-care (01) ==
LOC: HO.HOSX 08:17
PROVIDERS: Visit Provider Orthopaedic Surgery
DX: Z47.1 Aftercare following joint replacement surgery (principal); Z96.641 Presence of right artificial hip joint
CPT/HCPCS: 72170; 99212

== ENCOUNTER 2022-01-07 11:56 | Outpatient (REF) | payer MEDICARE, SELFPAY ==
--- NOTE | ~2022-01-07 | XR_ITS ---
EXAMINATION: XR PELVIS CLINICAL INFORMATION: Pain COMPARISON: Previous pelvis x-ray April 2021 TECHNIQUE: AP view of the pelvis. FINDINGS: There is a right hip replacement in satisfactory position. No fracture, dislocation or x-ray evidence of loosening is seen. There is mild arthritis at the left hip joint. There are degenerative changes at the pubic symphysis sacroiliac joints and lower lumbar spine. No fracture or dislocation. Normal soft tissues. XR/XR pelvis 1-2V IMPRESSION: Satisfactory appearance of right hip replacement.
--- NOTE | ~2022-01-07 | XR_ITS ---
EXAMINATION: XR KNEE AP STANDING, BILATERAL CLINICAL INFORMATION: Bilateral knee pain. COMPARISON: None TECHNIQUE: AP bilateral standing view of the knees was obtained. FINDINGS: The left knee is slightly higher compared to right knee. There is genu valgus deformity right knee with severe loss of lateral knee and [id number] loss of medial compartment joint space of both knees. There is moderate periarticular spurring in the lateral compartments of both knees. No loose bodies or bony erosive changes seen. The soft tissues are normal. XR/XR knee standing BI IMPRESSION: Mild genu valgus deformity right knee. Severe degenerative changes with periarticular spurring lateral compartment both knees. [id number] loss of joint space medial compartment both knees.
--- NOTE | ~2022-01-07 | XR_ITS ---
EXAMINATION: XR KNEE, RIGHT CLINICAL INFORMATION: Pain COMPARISON: AP view of both knees from earlier the same day TECHNIQUE: Lateral and sunrise view of the right knee of the right knee. FINDINGS: No fracture or dislocation. There is arthritis at the patellofemoral joint and large joint effusion. XR/XR knee RT 2V IMPRESSION: Arthritis at the patellofemoral joint and large joint effusion.
== END 2022-01-07 11:57 | disposition home or self-care (01) ==
LOC: HO.HOSX 11:56
PROVIDERS: Visit Provider Orthopaedic Surgery
DX: M17.0 Bilateral primary osteoarthritis of knee (principal); T84.84XA Pain due to internal orthopedic prosthetic devices, implants and grafts, initial encounter; Z96.641 Presence of right artificial hip joint
CPT/HCPCS: 20610; 72170; 73560; 73565; 99212; J1100

== ENCOUNTER 2024-02-24 12:22 | Outpatient (REF) | payer MEDICARE, SELFPAY ==
--- NOTE | ~2024-02-24 | XR_ITS ---
EXAMINATION: XR SHOULDER, LEFT CLINICAL INFORMATION: Left shoulder pain. COMPARISON: None available. TECHNIQUE: AP, scapular Y, and axillary views of the left shoulder. FINDINGS: No acute fracture or dislocation. Severe glenohumeral joint space narrowing with marginal osteophytes. Small acromioclavicular marginal osteophytes with lateral subacromial spurring. No concerning lytic or blastic osseous lesion. XR/XR shoulder LT min 2V IMPRESSION: 1. Severe glenohumeral osteoarthritis. 2. Mild acromioclavicular osteoarthritis with lateral subacromial spurring.
== END 2024-02-24 12:23 | disposition home or self-care (01) ==
LOC: HO.HOSX 12:22
PROVIDERS: Visit Provider Physician Assistant
DX: M19.012 Primary osteoarthritis, left shoulder (principal)
CPT/HCPCS: 20610; 73030; 99212; J1010

== ENCOUNTER 2024-02-24 12:48 | Outpatient (AMB) | payer MEDICARE, SELFPAY ==
--- NOTE | 2024-02-24 13:16 | MHC.OFFVIS ---
Intake Visit Reasons: New prob left shoulder pain Intake Note: Darlene a 78 year old female who presents today for an evaluation of left shoulder pain. Patient reports she was moving heavy plants on 02/10/24 and her shoulder starting having severe pain. She states for several days after that she couldnt use her left arm and was having trouble even opening up a door. She states the pain isnt as severe. She tried Voltaran and ibuprofen which helped with her pain. Allergies azithromycin Allergy (Intermediate, Verified 02/24/24 13:20) Vomiting HPI HPI New prob left shoulder pain : Details: 78-year-old female who presents to the office today for an evaluation of left shoulder after moving heavy plants and experienced severe pain in her shoulder, 02/10/24. She reports she was unable to use her left arm such as opening up a door. She states she has improvement in her pain however she continues to have some pain in her shoulder that is aggravated with pulling motions. She finds no relief with lidocaine or ibuprofen. She does not have a history of diabetes. [facility] Medical History Arthritis COVID-19 vaccine series completed Depression Elevated cholesterol HLD (hyperlipidemia) Hypothyroidism Surgical History History of appendectomy Hx of cataract extraction Hx of hysterectomy Social History Are you a primary care services manager to a significant other at home: No Do you presently have visiting nurse or other home services: No service: No Current occupational status: retired Review of Systems Const All systems reviewed & are unremarkable except as noted in HPI and below Physical Exam Extrem Other: Left shoulder: Normal to inspection. Tenderness over the bicipital groove and along the deltoid region of the shoulder. Forward flexion to 175, external rotation to 90, internal rotation to S1. 5/5 RTC strength. Negative Nunez and cross body abduction. NVI. Office Procedures Joint Injection/Drain Joint Injection/Drain Primary Site: left shoulder Prep: site was prepped using aseptic technique, ethochloride spray was applied and injection warnings given Injected: 80 mg of, DepoMedrol, with 8 mL of, 1% plain lidocaine and in the subcromial space Approach Used: posterolateral Procedure: The patient tolerated the procedure well and there was some relief with the local anesthesia Coding 51591 - Glenohumeral/Tronchanteric Bursa/Intraarticular Procedure code (CPT) selection complete Results Reviewed Results Reviewed: Xrays were obtained in the office today and personally reviewed by me of the left shoulder show mild oa Assessment & Plan Assessment & Plan (1) Osteoarthritis of left shoulder: Code(s): M19.012 - Primary osteoarthritis, left shoulder Category: Medical Qualifiers: Osteoarthritis type: primary Qualified Code(s): M19.012 - Primary osteoarthritis, left shoulder Plan We discussed options today, which include steroid injection. The patient did consent to move forward with the left shoulder injection, which was tolerated well. I recommended rest, ice, and elevation and OTC anti-inflammatories as needed for discomfort. If symptoms persist or worsen over the next 4-6 weeks, patient will contact the office, otherwise follow-up as needed. ? Orders: Orders XR shoulder LT min 2V Today M25.512 - Pain in left shoulder Patient Instructions: Scribed for Jeanine Bragg PA-C, by Rolan Hill medical claims representative, on 02/24/2024 at 1:15 PM EST.? I, Jeanine Bragg PA-C, have personally reviewed and agree with the information entered by the scribe. Coding Level of Care Code Est Pt Level 3 (02968) Diagnoses Primary osteoarthritis of left shoulder M19.012 Osteoarthritis type: primary CPT Codes Coding - Joint 7: 62772 - Glenohumeral/Tronchanteric Bursa/Intraarticular ([id number])
== END 2024-02-24 13:51 | disposition home or self-care (01) ==
PROVIDERS: Visit Provider Physician Assistant
DX: M19.012 Primary osteoarthritis, left shoulder (principal)
CPT/HCPCS: 20610; 99213

== ENCOUNTER 2024-09-18 12:37 | Outpatient (AMB) | payer MEDICARE, SELFPAY ==
--- NOTE | 2024-09-18 13:03 | MHC.OFFVIS ---
Vital Signs 09/18/24 13:16 Height 5 ft 8 in Weight 150 lb BMI 22.8 Intake Visit Reasons: New prob- B/L shoulder pain, injection request Intake Note: Darlene a 79 year old right hand dominant female presents today for an evaluation of bilateral shoulder pain. Patient was last seen on 02/24/24 for her OA of left shoulder and received an injection. States injection provided her with relief for about 4 months. Today she would like to discuss injections in both shoulders. Currently she is unable to carry heavy objects. Finds no relief with Aleve or Tylenol and very little relief with taking ibuprofen. States voltarin gel provides temporary relief for about 15 minutes. Allergies azithromycin Allergy (Intermediate, Verified 09/18/24 13:20) Vomiting Medication List - Last Reconciled 09/18/24 by Jeanine Bragg PA-C alendronate 70 mg PO QWEEK amoxicillin 2,000 mg (4 x 500 mg) PO ONCE 1 day atorvastatin 1 tab PO DAILY latanoprost 0.005% 1 drp ophthalmic-Right BEDTIME levothyroxine (Euthyrox) 1 tab PO DAILY levothyroxine (Euthyrox) 100 mcg PO DAILY vit C,J-Kt-mrajo-lutein-zeaxan 250-90-40-1 mg (PreserVision AREDS-2) 2 tabs PO DAILY HPI HPI New prob- B/L shoulder pain, injection request: Details: 79-year-old female presents to the office today for bilateral shoulder pain. I last saw her February of 2024 for her left shoulder. She had an injection in the left shoulder with 4-5 mths relief with the injection. She has pain with sleeping on her side in the right shoulder. She states the pain goes down the deltoid region of the shoulder . She has difficulty with reaching and repetitive motion. [facility] Medical History Arthritis COVID-19 vaccine series completed Depression Elevated cholesterol HLD (hyperlipidemia) Hypothyroidism Surgical History Hx of cataract extraction History of appendectomy Hx of hysterectomy Social History Are you a primary managed care coordinator to a significant other at home: No Do you presently have visiting nurse or other home services: No service: No Current occupational status: retired Review of Systems Const All systems reviewed & are unremarkable except as noted in HPI and below Physical Exam Vital Signs: BMI result Body Mass Index 22.8 Const General: cooperative and no acute distress Orientation/consciousness: patient oriented x3 Resp Effort & Inspection: normal respiratory effort and able to speak in complete sentences Cardio Peripheral pulses: Peripheral pulses 2+ throughout Neuro General: patient oriented x3 Extrem Other: Left shoulder: Normal to inspection. Tenderness over the bicipital groove and along the deltoid region of the shoulder. Forward flexion to 175, external rotation to 90, internal rotation to S1. 5/5 RTC strength. Negative Nunez and cross body abduction. NVI. Right shoulder normal to inspection. Forward flexion to 175. External rotation 90. Internal rotation S1. She is able to activate rotator cuff strength testing. Neurovascularly intact. Office Procedures AMB Joint Injection/Aspiration Joint Injection/Aspiration Primary Site: right shoulder (80mg depo) Secondary Site: left shoulder (40mg depo) Prep: site was prepped using aseptic technique, ethochloride spray was applied and injection warnings given Injected: DepoMedrol, with 8 mL of, 1% plain lidocaine and in the subcromial space Approach Used: posterolateral Procedure: The patient tolerated the procedure well and there was some relief with the local anesthesia Coding 03151 - Glenohumeral/Tronchanteric Bursa/Intraarticular Procedure code (CPT) selection complete Results Reviewed Results Reviewed: X-rays of the right shoulder obtained in the office today show severe degenerative joint disease Assessment & Plan Assessment & Plan (1) Osteoarthritis of left shoulder: Code(s): M19.012 - Primary osteoarthritis, left shoulder Category: Medical Qualifiers: Osteoarthritis type: primary Qualified Code(s): M19.012 - Primary osteoarthritis, left shoulder (2) Osteoarthritis of right shoulder: Code(s): M19.011 - Primary osteoarthritis, right shoulder Category: Medical Plan We discussed options today, which include steroid injection. The patient did consent to move forward with the injection, which was tolerated well.? I recommended rest, ice and elevation and OTC antiinflammatories prn for discomfort. If symptoms persist over the next 6-8 weeks, they will contact our office, otherwise, prn Orders: Orders XR shoulder RT min 2V Today M25.511 - Pain in right shoulder Coding Level of Care Code Est Pt Level 3 (33477) Complex EM visit Add On G2211 Diagnoses Primary osteoarthritis of left shoulder M19.012 Osteoarthritis type: primary Osteoarthritis of right shoulder M19.011 CPT Codes Coding - Joint 7: 33872 - Glenohumeral/Tronchanteric Bursa/Intraarticular ([id number])
[2024-09-18 13:16] VITALS: BMI 22.8
== END 2024-09-18 13:46 | disposition home or self-care (01) ==
PROVIDERS: Visit Provider Physician Assistant
DX: M19.012 Primary osteoarthritis, left shoulder (principal); M19.011 Primary osteoarthritis, right shoulder
CPT/HCPCS: 20610; 99213

== ENCOUNTER → 2024-09-18 12:59 | Outpatient (BNV) | payer MEDICARE, SELFPAY | PROVIDERS: Visit Provider Radiology Diagnostic Radiology | DX: M19.011 Primary osteoarthritis, right shoulder (principal) | CPT/HCPCS: 73030 ==

== ENCOUNTER 2024-09-18 14:24 | Outpatient (REF) | payer MEDICARE, SELFPAY ==
--- NOTE | ~2024-09-18 | XR_ITS ---
EXAMINATION: XR SHOULDER 2 OR MORE VIEWS RIGHT HISTORY: M25.511 - Pain in right shoulder COMPARISON: There are no prior studies available for comparison. FINDINGS: Three views of the right shoulder are submitted. Osseous mineralization is normal. There is no fracture or dislocation. There is severe degenerative change of the glenohumeral joint with joint space narrowing and osteophyte formation. There is mild narrowing of the AC joint. The soft tissues are unremarkable. XR/XR shoulder RT min 2V IMPRESSION: Severe degenerative change of the glenohumeral joint. Electronically signed by: Jose G Lewis MD 09/26/2024 07:23 AM JAMES
== END 2024-09-18 14:25 | disposition home or self-care (01) ==
LOC: HO.HOSX 14:24
PROVIDERS: Visit Provider Physician Assistant
DX: M25.511 Pain in right shoulder (principal); M19.011 Primary osteoarthritis, right shoulder; M19.012 Primary osteoarthritis, left shoulder
CPT/HCPCS: 20610; 73030; 99212; J1010; J2003

== ENCOUNTER 2025-03-25 14:13 | Outpatient (AMB) | payer MEDICARE, SELFPAY ==
--- OUTSIDE RECORDS SUMMARY | 2025-03-25 14:38 | XMS_ITS | Patient Health Record ---
Author Organization [facility] [address] Address [address] [place] [address] Care Team Providers Care Test Case Developer Name Role Phone ANDRIY GARCIA Unavailable [phone] GARCIAJESUSITA MERRITT Unavailable [phone] MEREDITH NGUYỄN Unavailable [phone] Allergies No Known Allergies Results Component Value Reference Range Notes Comp. Metabolic Panel ([id number] Reviewed date:08/02/2024 10:57:54 AM Interpretation: Performing Lab:[facility] [place], [facility], Phone - [phone], Director - Brayden Notes/Report: Glucose 104 70-99 mg/dL BUN 16 8-27 mg/dL Creatinine 0.76 0.57-1.00 mg/dL eGFR 80 >59 mL/min/1.73 BUN/Creatinine Ratio 21 12-28 Sodium 143 134-144 mmol/L Potassium 4.7 3.5-5.2 mmol/L Chloride 104 96-106 mmol/L Carbon Dioxide, Total 21 20-29 mmol/L Calcium 9.4 8.7-10.3 mg/dL Protein, Total 6.6 6.0-8.5 g/dL Albumin 4.5 3.8-4.8 g/dL Globulin, Total 2.1 1.5-4.5 g/dL Bilirubin, Total 0.4 0.0-1.2 mg/dL Alkaline Phosphatase 78 44-121 IU/L AST (SGOT) 23 0-40 IU/L ALT (SGPT) 13 0-32 IU/L Lipid Panel-[id number] Reviewed date:08/02/2024 10:57:39 AM Interpretation: Performing Lab:[facility] [place], Phone - [phone], Director - Brayden Notes/Report: Cholesterol, Total 201 100-199 mg/dL Triglycerides 74 0-149 mg/dL HDL Cholesterol 111 >39 mg/dL VLDL Cholesterol Jorge 13 5-40 mg/dL LDL Chol Calc ([facility]) 77 0-99 mg/dL Vitamin D, 87-[id number] Reviewed date:08/02/2024 11:08:35 AM Interpretation: Performing Lab:[facility] [place], [address] [facility], Phone - [phone], Director - Brayden Notes/Report: Vitamin D, 25-Hydroxy 46.2 30.0-100.0 ng/mL Vitamin D deficiency has been defined by the [place] of Medicine and an Endocrine Society practice guideline as a level of serum 25-OH vitamin D less than 20 ng/mL (1,2). The Endocrine Society went on to further define vitamin D insufficiency as a level between 21 and 29 ng/mL (2). 1. IOM ([place] of [employer]). 2010. Dietary reference intakes for calcium and D. [place]: The National Academies Press. 2. Bradford MF, Anat GOODMAN, Jennifer BEAL, et al. Evaluation, treatment, and prevention of vitamin D deficiency: an Endocrine Society clinical practice guideline. JCEM. 2010; 96(7):1911-30. [id number] Reviewed date:11/30/2024 08:47:17 AM Interpretation: Performing Lab:[facility] [place], [address] [facility], Phone - [phone], Director - Brayden Notes/Report: TSH 0.480 0.450-4.500 uIU/mL Reason For Referral No Information Medications Medication SIG (Take, Route, Frequency, Duration) Notes Start Date End Date Status Levothyroxine Sodium 125 MCG 1 tablet in the morning on an empty stomach Orally Once a day; Duration: 30 days 07/28/2022 Active Fosamax 70 MG 1 tablet 30 minutes before the first food, beverage or medicine of the day with plain water Orally once a week; Duration: 30 days Active Effexor XR 37.5 MG 1 capsule with food Orally Once a day; Duration: 90 days 06/30/2021 Active PreserVision AREDS - 2 tabs Orally daily Active Lipitor 40 MG 1 tablet Orally Once a day; Duration: 90 days Active Fish Oil 1000 MG 1 capsule Orally Thr ee times a day Active Senior Multivitamin Plus Active Immunizations Vaccine Route Administration Date Status Comme nts Pfizer Covid-19 Vaccine Unknown 11/26/2020 Administered Pfizer Covid-19 Vaccine Unknown 12/17/2020 Administered Pfizer Covid-19 Vaccine Unknown 06/19/2021 Administered SHINGRIX SC Subcutaneous 03/05/2022 Administered SHINGRIX IM Intramuscular 07/28/2022 Administered Problems Problem Type SNOMED Code ICD Code Onset Dates Problem Status W/U Status Risk Notes Problem Hypothyroidism (87577931) Hypothyroidism, unspecified (E03.9) Active confirmed Problem Vitamin D deficiency (89972036) Vitamin D deficiency, unspecified (E55.9) Active confirmed Problem Hyperlipidemia (84352849) Hyperlipidemia, unspecified (E78.5) Active confirmed Problem Age-related osteoporosis (562134639) Age-related osteoporosis without current pathological fracture (M81.0) Active confirmed Problem Adult health examination (653019615) Encounter for general adult medical examination without abnormal findings (Z00.00) Active confirmed Problem Endocrine/metaboli c screening (513717063) Encounter for screening for other suspected endocrine disorder (Z13.29) Active confirmed Problem Morbid obesity (222199663) Morbid obesity (E66.01) Active confirmed Problem Anxiety (45897204) Anxiety (F41.9) Active confi rmed Problem Depressive disorder (disorder) (69831396) Depression, unspecified depression type (F32.9) Active confirmed Problem Hypothyroidism (88057038) Hypothyroidism, unspecified type (E03.9) Active confirmed Problem Arthritis (7132248) Arthritis (M19.90) Active confirmed Problem Annual health maintenance examination (08009939) Annual physical exam (Z00.00) Active confirmed Problem Pre-surgery evaluation (161980716) Pre-op exam (Z01.818) Active confirmed Problem Vitamin D deficiency (03897364) Vitamin D deficiency (E55.9) Active confirmed Problem Age-related osteoporosis (958602521) Osteoporosis without current pathological fracture, unspecified osteoporosis type (M81.0) Active confirmed Problem History of right hip replacement (0746798157997986) History of right hip replacement (Z96.641) Active confirmed Problem Lipid screening (871276811) Lipid screening (Z13.220) Active confirmed Vital Signs Heart Rate 88 /min 12/05/2024 Oximetry 98 % 12/05/2024 Blood pressure diastolic 80 mm Hg 12/05/2024 Height 65 in 12/05/2024 Blood pressure systolic 124 mm Hg 12/05/2024 Weight 152.0 lbs 12/05/2024 BMI 25.29 kg/m2 12/05/2024 Encounters Encounter Location Date Provider Diagnosis [facility] [address] [place] [address] 04/21/2024 MEREDITH GOPI Compression fracture of T12 vertebra, initial encounter S22.080A ; Closed fracture of sternum, unspecified portion of sternum, initial encounter S22.20XA ; Closed fracture of multiple ribs of both sides, initial encounter S22.43XA and Status post fall Z91.[address] [facility] [address] [place] [address] 08/01/2024 ANDRIY GARCIA Osteoporosis with current pathological fracture with routine healing, unspecified osteoporosis type, subsequent encounter M80.00XD ; Hyperlipidemia, unspecified E78.5 ; Hypothyroidism, unspecified E03.9 ; Morbid obesity E66.01 and Elevated liver enzymes R74.[address] [facility] [address] [place] [address] 12/05/2024 ANDRIY GARCIA Annual physical exam Z00.00 and Other specified counseling Z71.[address] [facility] [address] [place] [address] 03/30/2024 ANDRIY GARCIA [facility] [address] [place] [address] 04/05/2024 ANDRIY GARCIA [facility] [address] [place] [address] 04/09/2024 ANDRIY GARCIA [facility] [address] [place] [address] 04/10/2024 ANDRIY GARCIA [facility] [address] [place] [address] 07/10/2024 ANDRIY GARCIA [facility] [address] [place] [address] 08/02/2024 ANDRIY GARCIA Hypothyroidism, unspecified type E03.9 and Compression fracture of T12 vertebra, initial encounter S22.080A [facility] [address] [place] [address] 08/09/2024 ANDRIY GARCIA [facility] [address] [place] [address] 08/09/2024 ANDRIY GARCIA [facility] [address] [place] [address] 12/06/2024 ANDRIY GARCIA Hypothyroidism, unspecified type E03.9 and Compression fracture of T12 vertebra, initial encounter S22.080A Assessments Encounter Date Diagnosis (ICD Code) Assessment Notes Treatment Notes Treatment Clinical Notes Section Notes 04/21/2024 Compression fracture of T12 vertebra, initial encounter (ICD-10 - S22.080A) Discussed she should really be using caution with gabapentin if she does not need it she should stay off of it because of sedation and dizziness We do not want any more falls Can stick with ibuprofen for now Refill provided for Synthroid Can follow-up with primary care provider Of note, some information is being carried forward from prior records for informational purposes only and is being cited so that efficiency, safety and quality of the patient's care is not compromised This note was prepared using voice recognition software and direct typing Please excuse inadvertent screen making technician or typing errors, or uncorrected word substitutions Although every attempt has been made by the provider to proofread this document, occasional misspellings and typographical errors may still be present Due to the previous pandemic, and the use of personal protective equipment (PPE) This may decrease voice recognition accuracy Inadvertent screen making technician errors may occur 04/21/2024 Closed fracture of sternum, unspecified portion of sternum, initial encounter (ICD-10 - S22.20XA) Discussed she should really be using caution with gabapentin if she does not need it she should stay off of it because of sedation and dizziness We do not want any more falls Can stick with ibuprofen for now Refill provided for Synthroid Can follow-up with primary care provider Of note, some information is being carried forward from prior records for informational purposes only and is being cited so that efficiency, safety and quality of the patient's care is not compromised This note was prepared using voice recognition software and direct typing Please excuse inadvertent screen making technician or typing errors, or uncorrected word substitutions Although every attempt has been made by the provider to proofread this document, occasional misspellings and typographical errors may still be present Due to the previous pandemic, and the use of personal protective equipment (PPE) This may decrease voice recognition accuracy Inadvertent screen making technician errors may occur 08/01/2024 Osteoporosis with current pathological fracture with routine healing, unspecified osteoporosis type, subsequent encounter (ICD-10 - M80.00XD) Patient lives independently, has a 40-year-old son living in [place]. #Elevated alkaline phosphatase in September 2023 decreasing Lipitor from 40 mg daily to 40 mg every other day, adding [place] liquid,The liver enzymes have normalized in January 2024.She has been taking Lipitor every other day, cholesterol numbers have been within normal limits. #Severe hip arthritis status post right hip replacement in January 2022,Encourage lifestyle modifications to help with weight management. #Anxiety/depress ion: On antidepressants. #Hypothyroidism, on levothyroxine #Hyperlipidemia #Osteopenia: On Fosamax, tolerating well/discussed weightbearing exercises. 08/02/2024 Hypothyroidism, unspecified type (ICD-10 - E03.9) 12/05/2024 Annual physical exam (ICD-10 - Z00.00) Patient lives independently, has a 40-year-old son living in [place]. #Shoulder arthritis chronic recent cortisone shot with no effect. We discussed a follow-up with orthopedics or physical therapy. Patient interested in seeing a ict trainer for strength training. We discussed to call us back if there is no improvement. Patient understands and agrees with the plan #Elevated alkaline phosphatase in September 2023 decreasing Lipitor from 40 mg daily to 40 mg every other day, adding [place] liquid,The liver enzymes have normalized in January 2024.She has been taking Lipitor every other day, cholesterol numbers have been within normal limits. #Severe hip arthritis status post right hip replacement in January 2022,Encourage lifestyle modifications to help with weight management. #Anxiety/depress ion: On antidepressants. #Hypothyroidism, on levothyroxine #Hyperlipidemia #Osteopenia: On Fosamax, tolerating well/discussed weightbearing exercises.Medica re Wellness Patient seen and examined. Patient is here for Medicare wellness examination. I reviewed standard Medicare wellness paperwork including PHQ-9, list of medications, allergies,family history, social history, surgical history, and paperwork is scanned separately. I screened the patient for current standard preventive protocols and discussed role of colonoscopy, bone density,age appropriate immunizations including pneumonia vaccine, flu and COVID vaccine, new RSV vaccine and shingles vaccine. We discussed at length role of healthcare proxy. Having a healthcare proxy is important for decision making. Patient provided with healthcare proxy paperwork. Discussion started on end-of-life issues and [place] order of life-sustaining treatment. 12/06/2024 Hypothyroidism, unspecified type (ICD-10 - E03.9) 12/06/2024 Compression fracture of T12 vertebra, initial encounter (ICD-10 - S22.080A) 08/01/2024 Hyperlipidemia, unspecified (ICD-10 - E78.5) Patient lives independently, has a 40-year-old son living in [place]. #Elevated alkaline phosphatase in September 2023 decreasing Lipitor from 40 mg daily to 40 mg every other day, adding [place] liquid,The liver enzymes have normalized in January 2024.She has been taking Lipitor every other day, cholesterol numbers have been within normal limits. #Severe hip arthritis status post right hip replacement in January 2022,Encourage lifestyle modifications to help with weight management. #Anxiety/depress ion: On antidepressants. #Hypothyroidism, on levothyroxine #Hyperlipidemia #Osteopenia: On Fosamax, tolerating well/discussed weightbearing exercises. 08/02/2024 Compression fracture of T12 vertebra, initial encounter (ICD-10 - S22.080A) 12/05/2024 Other specified counseling (ICD-10 - Z71.89) Patient lives independently, has a 40-year-old son living in [place]. #Shoulder arthritis chronic recent cortisone shot with no effect. We discussed a follow-up with orthopedics or physical therapy. Patient interested in seeing a ict trainer for strength training. We discussed to call us back if there is no improvement. Patient understands and agrees with the plan #Elevated alkaline phosphatase in September 2023 decreasing Lipitor from 40 mg daily to 40 mg every other day, adding [place] liquid,The liver enzymes have normalized in January 2024.She has been taking Lipitor every other day, cholesterol numbers have been within normal limits. #Severe hip arthritis status post right hip replacement in January 2022,Encourage lifestyle modifications to help with weight management. #Anxiety/depress ion: On antidepressants. #Hypothyroidism, on levothyroxine #Hyperlipidemia #Osteopenia: On Fosamax, tolerating well/discussed weightbearing exercises.Medica re Wellness Patient seen and examined. Patient is here for Medicare wellness examination. I reviewed standard Medicare wellness paperwork including PHQ-9, list of medications, allergies,family history, social history, surgical history, and paperwork is scanned separately. I screened the patient for current standard preventive protocols and discussed role of colonoscopy, bone density,age appropriate immunizations including pneumonia vaccine, flu and COVID vaccine, new RSV vaccine and shingles vaccine. We discussed at length role of healthcare proxy. Having a healthcare proxy is important for decision making. Patient provided with healthcare proxy paperwork. Discussion started on end-of-life issues and [place] order of life-sustaining treatment. 04/21/2024 Closed fracture of multiple ribs of both sides, initial encounter (ICD-10 - S22.43XA) Discussed she should really be using caution with gabapentin if she does not need it she should stay off of it because of sedation and dizziness We do not want any more falls Can stick with ibuprofen for now Refill provided for Synthroid Can follow-up with primary care provider Of note, some information is being carried forward from prior records for informational purposes only and is being cited so that efficiency, safety and quality of the patient's care is not compromised This note was prepared using voice recognition software and direct typing Please excuse inadvertent screen making technician or typing errors, or uncorrected word substitutions Although every attempt has been made by the provider to proofread this document, occasional misspellings and typographical errors may still be present Due to the previous pandemic, and the use of personal protective equipment (PPE) This may decrease voice recognition accuracy Inadvertent screen making technician errors may occur 04/21/2024 Status post fall (ICD-10 - Z91.81) Discussed she should really be using caution with gabapentin if she does not need it she should stay off of it because of sedation and dizziness We do not want any more falls Can stick with ibuprofen for now Refill provided for Synthroid Can follow-up with primary care provider Of note, some information is being carried forward from prior records for informational purposes only and is being cited so that efficiency, safety and quality of the patient's care is not compromised This note was prepared using voice recognition software and direct typing Please excuse inadvertent screen making technician or typing errors, or uncorrected word substitutions Although every attempt has been made by the provider to proofread this document, occasional misspellings and typographical errors may still be present Due to the previous pandemic, and the use of personal protective equipment (PPE) This may decrease voice recognition accuracy Inadvertent screen making technician errors may occur 08/01/2024 Hypothyroidism, unspecified (ICD-10 - E03.9) Patient lives independently, has a 40-year-old son living in [place]. #Elevated alkaline phosphatase in September 2023 decreasing Lipitor from 40 mg daily to 40 mg every other day, adding [place] liquid,The liver enzymes have normalized in January 2024.She has been taking Lipitor every other day, cholesterol numbers have been within normal limits. #Severe hip arthritis status post right hip replacement in January 2022,Encourage lifestyle modifications to help with weight management. #Anxiety/depress ion: On antidepressants. #Hypothyroidism, on levothyroxine #Hyperlipidemia #Osteopenia: On Fosamax, tolerating well/discussed weightbearing exercises. 08/01/2024 Morbid obesity (ICD-10 - E66.01) Patient lives independently, has a 40-year-old son living in [place]. #Elevated alkaline phosphatase in September 2023 decreasing Lipitor from 40 mg daily to 40 mg every other day, adding [place] liquid,The liver enzymes have normalized in January 2024.She has been taking Lipitor every other day, cholesterol numbers have been within normal limits. #Severe hip arthritis status post right hip replacement in January 2022,Encourage lifestyle modifications to help with weight management. #Anxiety/depress ion: On antidepressants. #Hypothyroidism, on levothyroxine #Hyperlipidemia #Osteopenia: On Fosamax, tolerating well/discussed weightbearing exercises. 08/01/2024 Elevated liver enzymes (ICD-10 - R74.8) Patient lives independently, has a 40-year-old son living in [place]. #Elevated alkaline phosphatase in September 2023 decreasing Lipitor from 40 mg daily to 40 mg every other day, adding [place] liquid,The liver enzymes have normalized in January 2024.She has been taking Lipitor every other day, cholesterol numbers have been within normal limits. #Severe hip arthritis status post right hip replacement in January 2022,Encourage lifestyle modifications to help with weight management. #Anxiety/depress ion: On antidepressants. #Hypothyroidism, on levothyroxine #Hyperlipidemia #Osteopenia: On Fosamax, tolerating well/discussed weightbearing exercises. Plan Of Treatment Pending Test Test Name Order Date X ray : Knees, bilateral, A-P standing 0 05/09/2023 Hemoglobin A1c 11/24/2020 TSH 11/24/2020 Lipid Panel 11/24/2020 Comp. Metabolic Panel (14) 11/24/2020 CBC 11/24/2020 Bone Density 11/24/2021 25OH VITAMIN D 11/24/2020 T3, FREE 01/08/2021 T4, FREE 01/08/2021 TSH 01/08/2021 LIPID PANEL, STANDARD 12/05/2024 LIPID PANEL, STANDARD 03/23/2023 LIPID PANEL, STANDARD 01/25/2024 COMPREHENSIVE METABOLIC PANEL 01/25/2024 COMPREHENSIVE METABOLIC PANEL 12/05/2024 COMPREHENSIVE METABOLIC PANEL 03/05/2022 COMPREHENSIVE METABOLIC PANEL 03/23/2023 CBC (INCLUDES DIFF/PLT) 12/05/2024 T4, FREE 03/05/2022 TSH 03/05/2022 TSH 03/23/2023 TSH 08/01/2024 VITAMIN D,25-OH,TOTAL,IA 12/05/2024 VITAMIN D,25-OH,TOTAL,IA 02/02/2022 VITAMIN D,25-OH,TOTAL,IA 01/25/2024 Next Appt Details Provider Name:ANDRIY GARCIA, 11:15:00 AM, [address], [place], [address], Insurance Providers Payer Name Payer Address Payer Phone Subscriber Number Group Number Insured Name Patient Relationship to Insured Coverage Start Date Coverage End Date [employer] [place] Medicare Advantage [address] [place] [phone] [id number] [id number] [id number] CARI TERRY Self - patient is the insured 4 Medical (General) History Medical History History ICD Code thyroid disease arthritis kidney stones Surgical History Surgery Date(Month/Year) hysetrectomy hip surgery
--- NOTE | 2025-03-25 15:14 | MHC.OFFVIS ---
Vital Signs 03/25/25 15:25 Height 5 ft 8 in Weight 150 lb BMI 22.8 Intake Visit Reasons: B/L shoulder inj, last inj 09/18/24 Intake Note: Darlene is a 79 year old female who presents today for bilateral shoulder injections. Patient reports last injection on 09/18/24 provided her with some relief. States her right shoulder causes her the most discomfort. Her pain level in her left shoulder is a 3 out of 10 and her right shoulder is a 10 out of 10. She has difficulty with holding items such as a cup of coffee or a purse. States feeling and hearing a crunchy sensation in he right shoulder. Finds biofreeze provides relief for about 5 to 10 minutes. Tylenol no longer provides her with relief and she is unable to take NSAID's. Allergies azithromycin Allergy (Intermediate, Verified 03/25/25 15:25) Vomiting Medication List - Last Reconciled 03/25/25 by Jeanine Bragg PA-C alendronate 70 mg PO QWEEK atorvastatin 1 tab PO DAILY latanoprost 0.005% 1 drp ophthalmic-Right BEDTIME levothyroxine (Euthyrox) 1 tab PO DAILY levothyroxine (Euthyrox) 100 mcg PO DAILY venlafaxine 37.5 mg PO DAILY vit C,W-Sm-ovbst-lutein-zeaxan 250-90-40-1 mg (PreserVision AREDS-2) 2 tabs PO DAILY HPI HPI B/L shoulder inj, last inj 09/18/24: Details: 79 yo female returns to the office today f/u bilateral shoulder pain. Right greater than left. She has had injections in the past which lasted approximately 7-1/2 months and over the last couple of weeks has had worsening pain and limited function. She has difficulty with bringing her arms up overhead. [facility] Medical History Arthritis COVID-19 vaccine series completed Depression Elevated cholesterol HLD (hyperlipidemia) Hypothyroidism Surgical History Hx of cataract extraction History of appendectomy Hx of hysterectomy Social History Are you a primary healthcare associate to a significant other at home: No Do you presently have visiting nurse or other home services: No service: No Current occupational status: retired Review of Systems Const All systems reviewed & are unremarkable except as noted in HPI and below Physical Exam Vital Signs: BMI result Body Mass Index 22.8 Const General: cooperative and no acute distress Orientation/consciousness: patient oriented x3 Resp Effort & Inspection: normal respiratory effort and able to speak in complete sentences Cardio Peripheral pulses: Peripheral pulses 2+ throughout Neuro General: patient oriented x3 Extrem Other: Left shoulder: Normal to inspection. Tenderness over the bicipital groove and along the deltoid region of the shoulder. Forward flexion to 175, external rotation to 90, internal rotation to S1. 5/5 RTC strength. Negative Nunez and cross body abduction. NVI. Right shoulder normal to inspection. Forward flexion to 175. External rotation 90. Internal rotation S1. She is able to activate rotator cuff strength testing. Neurovascularly intact. Office Procedures AMB Joint Injection/Aspiration Joint Injection/Aspiration Primary Site: right shoulder Secondary Site: left shoulder Prep: site was prepped using aseptic technique, ethochloride spray was applied and injection warnings given Injected: 80 mg of, DepoMedrol, with 8 mL of, 1% plain lidocaine and in the subcromial space Approach Used: posterolateral Procedure: The patient tolerated the procedure well and there was some relief with the local anesthesia Coding 36693 - Glenohumeral/Tronchanteric Bursa/Intraarticular Procedure code (CPT) selection complete Assessment & Plan Assessment & Plan (1) Osteoarthritis of left shoulder: Code(s): M19.012 - Primary osteoarthritis, left shoulder Category: Medical Qualifiers: Osteoarthritis type: primary Qualified Code(s): M19.012 - Primary osteoarthritis, left shoulder (2) Osteoarthritis of right shoulder: Code(s): M19.011 - Primary osteoarthritis, right shoulder Category: Medical Plan We discussed options today, which include steroid injection. The patient did consent to move forward with the injection, which was tolerated well.? I recommended rest, ice and elevation and OTC antiinflammatories prn for discomfort. If symptoms persist over the next 6-8 weeks, they will contact our office, otherwise, prn Coding Level of Care Code Est Pt Level 3 (04312) Complex EM visit Add On G2211 Diagnoses Primary osteoarthritis of left shoulder M19.012 Osteoarthritis type: primary Osteoarthritis of right shoulder M19.011 CPT Codes Coding - Joint 7: 88385 - Glenohumeral/Tronchanteric Bursa/Intraarticular ([id number])
[2025-03-25 15:25] VITALS: BMI 22.8
== END 2025-03-25 15:48 | disposition home or self-care (01) ==
LOC: HO.HOS 14:14
PROVIDERS: Visit Provider Physician Assistant
DX: M19.012 Primary osteoarthritis, left shoulder (principal); M19.011 Primary osteoarthritis, right shoulder
CPT/HCPCS: 20610; 99213

== ENCOUNTER → 2025-03-25 14:13 | Outpatient (BNVA) | payer MEDICARE, SELFPAY | PROVIDERS: Visit Provider Physician Assistant | DX: M19.012 Primary osteoarthritis, left shoulder (principal); M19.011 Primary osteoarthritis, right shoulder | CPT/HCPCS: 20610; 99212; J1010; J2003 ==

== ENCOUNTER 2025-06-26 08:07 | Outpatient (REF) | payer MEDICARE, SELFPAY ==
--- OUTSIDE RECORDS SUMMARY | 2024-04-09 04:30 | XMS_ITS ---
Author Organization [facility] [address] Address [address] [place] [address] Care Team Providers Care Agricultural Equipment Sales Manager Name Role Phone JOSE SUNITAVARGHESE Unavailable [phone] JESUSITA ALMONTE Unavailable [phone] Encounters Encounter Location Date Provider Diagnosis [facility] [address] [place] [address] 04/09/2024 JESUSITA ALMONTE Plan Of Treatment Next Appt Details Provider Name:ANDRIY ALMONTE, 12:15:00 PM, [address], [place], [address], Progress Notes * CARI TERRYOB:[birth year] (79 yo F)Acc No.[id number]:04/09/2024 Patient: CARI KEARNEY Provider: Ada Almonte MD :1945 A ge:78 Y S ex:Female Date:04/09/2024 Address: [address] [place], [place] Subjective: * Chief Complaints: * * Medical History: Objective: * Vitals: Assessment: Plan: * Treatment: * Images: Billing Information: * Visit Code: * Procedure Codes: Care Plan Details* * Electronic signature of HERIBERTO ALMONTE MD on 06/26/2025 at 08:15 AM EDT Sign off status: Pending * Provider: Ada Almonte MD Date: 0 04/09/2024 Generated for Krish zamora/Mavis/Harishsmdigna on: 1 08:15 AM EDT
--- NOTE | ~2025-06-26 | XR_ITS ---
EXAMINATION: XR SHOULDER, RIGHT CLINICAL INFORMATION: M25.511 - Pain in right shoulder COMPARISON: X-ray 10/08/2024 TECHNIQUE: Three views of the right shoulder. FINDINGS: Severe glenohumeral arthritis, joint space loss, osteophytes. Mild acromioclavicular arthritis. No visible acute fracture or dislocation. Mild osseous demineralization. No abnormal soft tissue calcification. No suspicious lung findings seen. XR/XR shoulder RT min 2V IMPRESSION: Severe glenohumeral arthritis. Electronically signed by: Barrett Andino MD 06/26/2025 01:22 PM EDT
--- OUTSIDE RECORDS SUMMARY | 2025-06-26 08:15 | XMS_ITS | Patient Health Record ---
Author Organization [facility] [address] Address [address] [place] [address] Care Team Providers [employer] Name Role Phone ANDRIY GARCIA Unavailable [phone] Allergies No Known Allergies Results Component Value Reference Range Notes Comp. Metabolic Panel (14)-3 Reviewed date:08/02/2024 10:57:54 AM Interpretation: Performing Lab:[facility] [place], [facility], Phone - [phone], Director - MDYrny Notes/Report: Glucose 104 70-99 mg/dL BUN 16 [...] IU/L ALT (SGPT) 13 0-32 IU/L Lipid Panel-[id number] Reviewed date:08/02/2024 10:57:39 AM Interpretation: Performing Lab:[facility] [place], [address], [place], Phone - [phone], Director - MDJoy Notes/Report: Cholesterol, Total 201 100-199 mg/dL Triglycerides 74 0-149 mg/dL HDL Cholesterol 111 >39 mg/dL VLDL Cholesterol Jorge 13 5-40 mg/dL LDL Chol Calc ([facility]) 77 0-99 mg/dL Vitamin D, 86-[id number] Reviewed date:08/02/2024 11:08:35 AM Interpretation: Performing Lab:[facility] [place], [address] [facility], Phone - [phone], Director - Brayden Notes/Report: Vitamin D, 25-Hydroxy 46.2 30.0-100.0 ng/mL Vitamin D deficiency has been defined by the [place] of [employer] and an Endocrine Society practice guideline as a level of serum 25-OH vitamin D less than 20 ng/mL (1,2). The Endocrine Society went on to further define vitamin D insufficiency as a level between 21 and 29 ng/mL (2). 1. IOM ([place] of [place]). 2010. Dietary reference intakes for calcium and D. [place]: The National Academies Press. 2. Bradford MF, Anat NC, Jennifer BEAL, et al. Evaluation, treatment, and prevention of vitamin D deficiency: an Endocrine Society clinical practice guideline. JCEM. 2010; 96(7):1911-30. Comp. Metabolic Panel (14)-3 [id number] Reviewed date:05/29/2025 11:14:29 AM Interpretation: Performing Lab:[facility] [place], [address] [facility], [place], Phone - [phone], Director - Brayden Notes/Report: Glucose 99 70-99 mg/dL BUN 11 8-27 mg/dL Creatinine 0.59 0.57-1.00 mg/dL eGFR 92 >59 mL/min/1.73 BUN/Creatinine Ratio 19 12-28 Sodium 140 134-144 mmol/L Potassium 4.0 3.5-5.2 mmol/L Chloride 103 96-106 mmol/L Carbon Dioxide, Total 19 20-29 mmol/L Calcium 9.2 8.7-10.3 mg/dL Protein, Total 6.0 6.0-8.5 g/dL Albumin 4.1 3.8-4.8 g/dL Globulin, Total 1.9 1.5-4.5 g/dL Bilirubin, Total 0.3 0.0-1.2 mg/dL Alkaline Phosphatase 66 44-121 IU/L Effective June 03, 2025 Alkaline Phosphatase reference interval will be changing to: Age Male Female 0 - 5 days 47 - 127 47 - 127 6 - 10 days 29 - 242 29 - 242 11 - 20 days 109 - 357 109 - 357 21 - 30 days 94 - 494 94 - 494 1 - 2 months 149 - 539 149 - 539 3 - 6 months 131 - 452 131 - 452 7 - 11 months 117 - 401 117 - 401 12 months - 6 years 158 - 369 158 - 369 7 - 12 years 150 - 409 150 - 409 13 years 156 - 435 78 - 227 14 years 114 - 375 64 - 161 15 years 88 - 279 56 - 134 16 years 74 - 207 51 - 121 17 years 63 - 161 47 - 113 18 - 20 years 51 - 125 42 - 106 21 - 50 years 47 - 123 41 - 116 51 - 80 years 49 - 135 51 - 125 >80 years 48 - 129 48 - 129 AST (SGOT) 23 0-40 IU/L ALT (SGPT) 16 0-32 IU/L Lipid Panel-[id number] Reviewed date:05/29/2025 11:07:52 AM Interpretation: Performing Lab:[facility] [place], [address] [facility], Phone - [phone], Director - Brayden Notes/Report: Cholesterol, Total 164 100-199 mg/dL Triglycerides 130 0-149 mg/dL HDL Cholesterol 75 >39 mg/dL VLDL Cholesterol Jorge 22 5-40 mg/dL LDL Chol Calc ([facility]) 67 0-99 mg/dL Vitamin D, 96-[id number] Reviewed date:05/29/2025 11:07:52 AM Interpretation: Performing Lab:[facility] [place], [address] [facility], [place], Phone - [phone], Director - Brayden Notes/Report: Vitamin D, 25-Hydroxy 30.3 30.0-100.0 ng/mL Vitamin D deficiency has been defined by the [place] of [employer] and an Endocrine Society practice guideline as a level of serum 25-OH vitamin D less than 20 ng/mL (1,2). The Endocrine Society went on to further define vitamin D insufficiency as a level between 21 and 29 ng/mL (2). 1. IOM ([place] of [employer]). 2010. Dietary reference intakes for calcium and D. [place]: The National Academies Press. 2. Bradford MF, Anat GOODMAN, Jennifer BEAL, et al. Evaluation, treatment, and prevention of vitamin D deficiency: an Endocrine Society clinical practice guideline. JCEM. 2010; 96(0):1911-30. CBC With Differential/Platel et-[id number] Reviewed date:05/29/2025 11:07:52 AM Interpretation: Performing Lab:[facility] [place], [address] [facility], Phone - [phone], Director - Brayden Notes/Report: WBC 5.9 3.4-10.8 x10E3/uL RBC 4.37 3.77-5.28 x10E6/uL Hemoglobin 13.8 11.1-15.9 g/dL Hematocrit 40.9 34.0-46.6 % MCV 94 79-97 fL MCH 31.6 26.6-33.0 pg MCHC 33.7 31.5-35.7 g/dL RDW 13.9 11.7-15.4 % Platelets 398 150-450 x10E3/uL Neutrophils 67 Not Estab. % Lymphs 24 Not Estab. % Monocytes 6 Not Estab. % Eos 1 Not Estab. % Basos 1 Not Estab. % Neutrophils (Absolute) 4.0 1.4-7.0 x10E3/uL Lymphs (Absolute) 1.4 0.7-3.1 x10E3/uL Monocytes(Absolute) 0.4 0.1-0.9 x10E3/uL Eos (Absolute) 0.1 0.0-0.4 x10E3/uL Baso (Absolute) 0.0 0.0-0.2 x10E3/uL Immature Granulocytes 0 Not Estab. % Immature Grans (Abs) 0.0 0.0-0.1 x10E3/uL [id number] Reviewed date:06/10/2025 09:00:30 AM Interpretation: Performing Lab:[facility] [place], [address] [facility], [place], Phone - [phone], Director - Brayden Notes/Report: TSH 0.514 0.450-4.500 uIU/mL [id number] Reviewed date:11/30/2024 08:47:17 AM Interpretation: Performing Lab:[facility] [place], [address] [facility], [place], Phone - [phone], Director - MDJodry Notes/Report: TSH 0.480 0.450-4.500 uIU/mL Reason For Referral No Information Medications Medication SIG (Take, Route, Frequency, Duration) Notes Start Date End Date Status Fosamax 70 MG 1 tablet 30 minutes before the first food, beverage or medicine of the day with plain water Orally once a week; Duration: 30 days Active Senior Multivitamin Plus Active Levothyroxine Sodium 125 MCG 1 tablet in the morning on an empty stomach Orally Once a day; Duration: 30 days 07/28/2022 Active Lipitor 40 MG 1 tablet Orally Once a day; Duration: 90 days Active Effexor XR 37.5 MG 1 capsule with food Orally Once a day; Duration: 90 days 06/30/2021 Active Fish Oil 1000 MG 1 capsule Orally Thr ee times a day Active Tylenol Extra Strength 500 MG 1 tablet as needed Orally twice a day Active PreserVision AREDS - 2 tabs Orally daily Active Immunizations Vaccine Route Administration Date Status Comme nts Pfizer Covid-19 Vaccine Unknown 11/26/2020 Administered Pfizer Covid-19 Vaccine Unknown 12/17/2020 Administered Pfizer Covid-19 Vaccine Unknown 06/19/2021 Administered SHINGRIX SC Subcutaneous 03/05/2022 Administered SHINGRIX IM Intramuscular 07/28/2022 Administered Problems Problem Type SNOMED Code ICD Code Onset Dates Problem Status W/U Status Risk Notes Problem Hypothyroidism (06594280) Hypothyroidism, unspecified (E03.9) Active confirmed Problem Vitamin D deficiency (48096531) Vitamin D deficiency, unspecified (E55.9) Active confirmed Problem Hyperlipidemia (39823713) Hyperlipidemia, unspecified (E78.5) Active confirmed Problem Age-related osteoporosis (244863391) Age-related osteoporosis without current pathological fracture (M81.0) Active confirmed Problem Adult health examination (932275238) Encounter for general adult medical examination without abnormal findings (Z00.00) Active confirmed Problem Endocrine/metaboli c screening (947103080) Encounter for screening for other suspected endocrine disorder (Z13.29) Active confirmed Problem Morbid obesity (796150583) Morbid obesity (E66.01) Active confirmed Problem Anxiety (30424826) Anxiety (F41.9) Active confi rmed Problem Depressive disorder (disorder) (38344362) Depression, unspecified depression type (F32.9) Active confirmed Problem Hypothyroidism (62774338) Hypothyroidism, unspecified type (E03.9) Active confirmed Problem Arthritis (7356158) Arthritis (M19.90) Active confirmed Problem Annual health maintenance examination (26298336) Annual physical exam (Z00.00) Active confirmed Problem Pre-surgery evaluation (340645351) Pre-op exam (Z01.818) Active confirmed Problem Vitamin D deficiency (43851405) Vitamin D deficiency (E55.9) Active confirmed Problem Age-related osteoporosis (112471030) Osteoporosis without current pathological fracture, unspecified osteoporosis type (M81.0) Active confirmed Problem History of right hip replacement (5439029586800707) History of right hip replacement (Z96.641) Active confirmed Problem Lipid screening (106203488) Lipid screening (Z13.220) Active confirmed Vital Signs Heart Rate 93 /min 06/05/2025 Oximetry 96 % 06/05/2025 Blood pressure diastolic 72 mm Hg 06/05/2025 Height 65 in 06/05/2025 Blood pressure systolic 120 mm Hg 06/05/2025 Weight 143.2 lbs 06/05/2025 BMI 23.83 kg/m2 06/05/2025 Encounters Encounter Location Date Provider Diagnosis [facility] [address] [place], [place] 08/01/2024 ANDRIY GARCIA Osteoporosis with cu rrent pathological fracture with routine healing, unspecified osteoporosis type, subsequent encounter M80.00XD ; Hyperlipidemia, unspecified E78.5 ; Hypothyroidism, unspecified E03.9 ; Morbid obesity E66.01 and Elevated liver enzymes R74.[address] [facility] [address] [place], [place] 12/05/2024 ANDRIY GARCIA Annual physical exam Z00.00 and Other specified counseling Z71.[address] [facility] [address] [place], [place] 06/05/2025 ANDRIY GARCIA Rectal bleed K62.5 ; Blood pressure check Z01.30 ; Hyperlipidemia, unspecified E78.5 ; Hypothyroidism, unspecified type E03.9 and Arthritis M19.[address] [facility] [address] [place], [place] 07/10/2024 ANDRIY GARCIA [facility] [address] [place] [address] 08/02/2024 ANDRIY CHAPAAN Hypothyroidism, unspecified type E03.9 and Compression fracture of T12 vertebra, initial encounter S22.080A [facility] [address] [place] [address] 08/09/2024 ANDRIY GARCIA [facility] [address] [place], [place] 08/09/2024 ANDRIY GARCIA [facility] [address] [place], [place] 12/06/2024 ANDRIY CHAPAAN Hypothyroidism, unspecified type E03.9 and Compression fracture of T12 vertebra, initial encounter S22.080A [facility] [address] [place], [place] 04/15/2025 ANDRIY CHAPAAN Compression fracture of T12 vertebra, initial encounter S22.080A [facility] [address] [place], [place] 06/05/2025 ANDRIY CHAPAAN Assessments Encounter Date Diagnosis (ICD Code) Assessment Notes Treatment Notes Treatment Clinical Notes Section Notes 08/01/2024 Osteoporosis with current pathological fracture with routine healing, unspecified osteoporosis type, subsequent encounter (ICD-10 - M80.00XD) Patient lives independently, has a 40-year-old son living in [place]. #Elevated alkaline phosphatase in September 2023 decreasing Lipitor from 40 mg daily to 40 mg every other day, adding Alberta liquid,The liver enzymes have normalized in January 2024.She has been taking Lipitor every other day, cholesterol numbers have been within normal limits. #Severe hip arthritis status post right hip replacement in January 2022,Encourage lifestyle modifications to help with weight management. #Anxiety/depressio n: On antidepressants. #Hypothyroidism, on levothyroxine #Hyperlipidemia #Osteopenia: On Fosamax, tolerating well/discussed weightbearing exercises. 08/02/2024 Hypothyroidism, unspecified type (ICD-10 - E03.9) 12/05/2024 Annual physical exam (ICD-10 - Z00.00) Patient lives independently, has a 40-year-old son living in [place]. #Shoulder arthritis chronic recent cortisone shot with no effect. We discussed a follow-up with orthopedics or physical therapy. Patient interested in seeing a personal financial planner for strength training. We discussed to call us back if there is no improvement. Patient understands and agrees with the plan #Elevated alkaline phosphatase in September 2023 decreasing Lipitor from 40 mg daily to 40 mg every other day, adding [place] liquid,The liver enzymes have normalized in January 2024.She has been taking Lipitor every other day, cholesterol numbers have been within normal limits. #Severe hip arthritis status post right hip replacement in January 2022,Encourage lifestyle modifications to help with weight management. #Anxiety/depressio n: On antidepressants. #Hypothyroidism, on levothyroxine #Hyperlipidemia #Osteopenia: On Fosamax, tolerating well/discussed weightbearing exercises.Medicare Wellness Patient seen and examined. Patient is [...] 12/06/2024 Hypothyroidism, unspecified type (ICD-10 - E03.9) 04/15/2025 Compression fracture of T12 vertebra, initial encounter (ICD-10 - S22.080A) 06/05/2025 Rectal bleed (ICD-10 - K62.5) Patient lives independently, has a 40-year-old son living in [facility]#Traumatic fall in summer 2023 leading to hospitalization and multiple fractures including sternum. She was on ibuprofen for a year for 100 mg daily. #Episodes of rectal bleed lasting from the last week of March through the last week of April 2025 patient is completely asymptomatic. During the episodes she recalls feeling dizzy but she did not contact the office. We discussed with her and we will be making an appointment with GI for a possible colonoscopy or endoscopy. #Shoulder arthritis chronic recent cortisone shot with no effect.Patient is currently seeing orthopedics and has an upcoming appointment in June. #Elevated alkaline phosphatase in September 2023 decreasing Lipitor from 40 mg daily to 40 mg every other day, adding [place] liquid,The liver enzymes have normalized in January 2024.She has been taking Lipitor every other day, cholesterol numbers have been within normal limits. #Severe hip arthritis status post right hip replacement in January 2022,Encourage lifestyle modifications to help with weight management. #Anxiety/depressio n: On antidepressants. #Hypothyroidism, on levothyroxine #Hyperlipidemia #Osteopenia: On Fosamax, tolerating well/discussed weightbearing exercises. 06/05/2025 Blood pressure check (ICD-10 - Z01.30) Patient lives independently, has a 40-year-old son living in [facility]#Traumatic fall in summer 2023 leading to hospitalization and multiple fractures including sternum. She was on ibuprofen for a year for 100 mg daily. #Episodes of rectal bleed lasting from the last week of March through the last week of April 2025 patient is completely asymptomatic. During the episodes she recalls feeling dizzy but she did not contact the office. We discussed with her and we will be making an appointment with GI for a possible colonoscopy or endoscopy. #Shoulder arthritis chronic recent cortisone shot with no effect.Patient is currently seeing orthopedics and has an upcoming appointment in June. #Elevated alkaline phosphatase in September 2023 decreasing Lipitor from 40 mg daily to 40 mg every other day, adding Alberta liquid,The liver enzymes have normalized in January 2024.She has been taking Lipitor every other day, cholesterol numbers have been within normal limits. #Severe hip arthritis status post right hip replacement in January 2022,Encourage lifestyle modifications to help with weight management. #Anxiety/depressio n: On antidepressants. #Hypothyroidism, on levothyroxine #Hyperlipidemia #Osteopenia: On Fosamax, tolerating well/discussed weightbearing exercises. 06/05/2025 Hyperlipidemia, unspecified (ICD-10 - E78.5) Patient lives independently, has a 40-year-old son living in [facility]#Traumatic fall in summer 2023 leading to hospitalization and multiple fractures including sternum. She was on ibuprofen for a year for 100 mg daily. #Episodes of rectal bleed lasting from the last week of March through the last week of April 2025 patient is completely asymptomatic. During the episodes she recalls feeling dizzy but she did not contact the office. We discussed with her and we will be making an appointment with GI for a possible colonoscopy or endoscopy. #Shoulder arthritis chronic recent cortisone shot with no effect.Patient is currently seeing orthopedics and has an upcoming appointment in June. #Elevated alkaline phosphatase in September 2023 decreasing Lipitor from 40 mg daily to 40 mg every other day, adding Alberta liquid,The liver enzymes have normalized in January 2024.She has been taking Lipitor every other day, cholesterol numbers have been within normal limits. #Severe hip arthritis status post right hip replacement in January 2022,Encourage lifestyle modifications to help with weight management. #Anxiety/depressio n: On antidepressants. #Hypothyroidism, on levothyroxine #Hyperlipidemia #Osteopenia: On Fosamax, tolerating well/discussed weightbearing exercises. 12/06/2024 Compression fracture of T12 vertebra, initial encounter (ICD-10 - S22.080A) 08/01/2024 Hyperlipidemia, unspecified (ICD-10 - E78.5) Patient lives independently, has a 40-year-old son living in [place]. #Elevated alkaline phosphatase in September 2023 decreasing Lipitor from 40 mg daily to 40 mg every other day, adding [place] liquid,The liver enzymes have normalized in January 2024.She has been taking Lipitor every other day, cholesterol numbers have been within normal limits. #Severe hip arthritis status post right hip replacement in January 2022,Encourage lifestyle modifications to help with weight management. #Anxiety/depressio n: On antidepressants. #Hypothyroidism, on levothyroxine #Hyperlipidemia #Osteopenia: On Fosamax, tolerating well/discussed weightbearing exercises. 08/02/2024 Compression fracture of T12 vertebra, initial encounter (ICD-10 - S22.080A) 12/05/2024 Other specified counseling (ICD-10 - Z71.89) Patient lives independently, has a 40-year-old son living in [place]. #Shoulder arthritis chronic recent cortisone shot with no effect. We discussed a follow-up with orthopedics or physical therapy. Patient interested in seeing a personal financial planner for strength training. We discussed to call us back if there is no improvement. Patient understands and agrees with the plan #Elevated alkaline phosphatase in September 2023 decreasing Lipitor from 40 mg daily to 40 mg every other day, adding Alberta liquid,The liver enzymes have normalized in January 2024.She has been taking Lipitor every other day, cholesterol numbers have been within normal limits. #Severe hip arthritis status post right hip replacement in January 2022,Encourage lifestyle modifications to help with weight management. #Anxiety/depressio n: On antidepressants. #Hypothyroidism, on levothyroxine #Hyperlipidemia #Osteopenia: On Fosamax, tolerating well/discussed weightbearing exercises.Medicare Wellness Patient seen and examined. Patient is [...] issues and [place] order of life-sustaining treatment. 08/01/2024 Hypothyroidism, unspecified (ICD-10 - E03.9) Patient lives independently, has a 40-year-old son living in [place]. #Elevated alkaline phosphatase in September 2023 decreasing Lipitor from 40 mg daily to 40 mg every other day, adding Alberta liquid,The liver enzymes have normalized in January 2024.She has been taking Lipitor every other day, cholesterol numbers have been within normal limits. #Severe hip arthritis status post right hip replacement in January 2022,Encourage lifestyle modifications to help with weight management. #Anxiety/depressio n: On antidepressants. #Hypothyroidism, on levothyroxine #Hyperlipidemia #Osteopenia: On Fosamax, tolerating well/discussed weightbearing exercises. 06/05/2025 Hypothyroidism, unspecified type (ICD-10 - E03.9) Patient lives independently, has a 40-year-old son living in [facility]#Traumatic fall in summer 2023 leading to hospitalization and multiple fractures including sternum. She was on ibuprofen for a year for 100 mg daily. #Episodes of rectal bleed lasting from the last week of March through the last week of April 2025 patient is completely asymptomatic. During the episodes she recalls feeling dizzy but she did not contact the office. We discussed with her and we will be making an appointment with GI for a possible colonoscopy or endoscopy. #Shoulder arthritis chronic recent cortisone shot with no effect.Patient is currently seeing orthopedics and has an upcoming appointment in June. #Elevated alkaline phosphatase in September 2023 decreasing Lipitor from 40 mg daily to 40 mg every other day, adding [place] liquid,The liver enzymes have normalized in January 2024.She has been taking Lipitor every other day, cholesterol numbers have been within normal limits. #Severe hip arthritis status post right hip replacement in January 2022,Encourage lifestyle modifications to help with weight management. #Anxiety/depressio n: On antidepressants. #Hypothyroidism, on levothyroxine #Hyperlipidemia #Osteopenia: On Fosamax, tolerating well/discussed weightbearing exercises. 06/05/2025 Arthritis (ICD-10 - M19.90) Patient lives independently, has a 40-year-old son living in [facility]#Traumatic fall in summer 2023 leading to hospitalization and multiple fractures including sternum. She was on ibuprofen for a year for 100 mg daily. #Episodes of rectal bleed lasting from the last week of March through the last week of April 2025 patient is completely asymptomatic. During the episodes she recalls feeling dizzy but she did not contact the office. We discussed with her and we will be making an appointment with GI for a possible colonoscopy or endoscopy. #Shoulder arthritis chronic recent cortisone shot with no effect.Patient is currently seeing orthopedics and has an upcoming appointment in June. #Elevated alkaline phosphatase in September 2023 decreasing Lipitor from 40 mg daily to 40 mg every other day, adding [place] liquid,The liver enzymes have normalized in January 2024.She has been taking Lipitor every other day, cholesterol numbers have been within normal limits. #Severe hip arthritis status post right hip replacement in January 2022,Encourage lifestyle modifications to help with weight management. #Anxiety/depressio n: On antidepressants. #Hypothyroidism, on levothyroxine #Hyperlipidemia #Osteopenia: On Fosamax, tolerating well/discussed weightbearing exercises. 08/01/2024 Morbid obesity (ICD-10 - E66.01) Patient lives independently, has a 40-year-old son living in [place]. #Elevated alkaline phosphatase in September 2023 decreasing Lipitor from 40 mg daily to 40 mg every other day, adding [place] liquid,The liver enzymes have normalized in January 2024.She has been taking Lipitor every other day, cholesterol numbers have been within normal limits. #Severe hip arthritis status post right hip replacement in January 2022,Encourage lifestyle modifications to help with weight management. #Anxiety/depressio n: On antidepressants. #Hypothyroidism, on levothyroxine #Hyperlipidemia #Osteopenia: On Fosamax, tolerating well/discussed weightbearing exercises. 08/01/2024 Elevated liver enzymes (ICD-10 - R74.8) Patient lives independently, has a 40-year-old son living in [place]. #Elevated alkaline phosphatase in September 2023 decreasing Lipitor from 40 mg daily to 40 mg every other day, adding Alberta liquid,The liver enzymes have normalized in January 2024.She has been taking Lipitor every other day, cholesterol numbers have been within normal limits. #Severe hip arthritis status post right hip replacement in January 2022,Encourage lifestyle modifications to help with weight management. #Anxiety/depressio n: On antidepressants. #Hypothyroidism, on levothyroxine #Hyperlipidemia #Osteopenia: [...] FREE 01/08/2021 TSH 01/08/2021 LIPID PANEL, STANDARD 01/25/2024 LIPID PANEL, STANDARD 12/05/2024 LIPID PANEL, STANDARD 03/23/2023 COMPREHENSIVE METABOLIC PANEL 01/25/2024 COMPREHENSIVE METABOLIC PANEL 12/05/2024 COMPREHENSIVE METABOLIC PANEL 03/05/2022 COMPREHENSIVE METABOLIC PANEL 03/23/2023 CBC (INCLUDES DIFF/PLT) 12/05/2024 T4, FREE 03/05/2022 TSH 03/05/2022 TSH 03/23/2023 TSH 08/01/2024 TSH 06/05/2025 VITAMIN D,25-OH,TOTAL,IA 02/02/2022 VITAMIN D,25-OH,TOTAL,IA 01/25/2024 VITAMIN D,25-OH,TOTAL,IA 12/05/2024 Next Appt Details Provider Name:ANDRIY GARCIA, 12:15:00 PM, [address], [place], [address], Insurance Providers Payer Name Payer Address Payer Phone Subscriber Number Group Number Insured Name Patient Relationship to Insured Coverage Start Date Coverage End Date [employer] [place] Medicare Advantage 1 [place] [phone] [id number] CARI TERRY Self - patient is the insured 4 Medical (General) History Medical History History ICD Code thyroid disease arthritis kidney stones Surgical History Surgery Date(Month/Year) hysetrectomy hip surgery
== END 2025-06-26 08:08 | disposition home or self-care (01) ==
LOC: HO.HOSX 08:07
PROVIDERS: Visit Provider Physician Assistant
DX: M19.011 Primary osteoarthritis, right shoulder (principal); Z79.890 Hormone replacement therapy
CPT/HCPCS: 20610; 73030; 99212; J0665; J1100; J2003

== ENCOUNTER 2025-06-26 12:48 | Outpatient (AMB) | payer MEDICARE, SELFPAY ==
--- NOTE | 2025-06-26 13:12 | MHC.OFFVIS ---
Intake Visit Reasons: OV: B/L shoulder, right worse. last inj 03/25/25 Intake Note: Darlene is a 79 year old female who presents today for bilateral shoulder injections, last injection 03/25/25. Patient reports injection to her right shoulder did not help, however for her left shoulder helped. States left arm discomfort is below her shoulder in her bicep area. She would like to discuss repeat of injection. Allergies azithromycin Allergy (Intermediate, Verified 06/26/25 13:15) Vomiting Medication List - Last Reconciled 06/26/25 by Jeanine Bragg PA-C alendronate 70 mg PO QWEEK atorvastatin 1 tab PO DAILY latanoprost 0.005% 1 drp ophthalmic-Right BEDTIME levothyroxine (Euthyrox) 1 tab PO DAILY levothyroxine (Euthyrox) 100 mcg PO DAILY venlafaxine 37.5 mg PO DAILY vit C,F-Xv-cbvrt-lutein-zeaxan 250-90-40-1 mg (PreserVision AREDS-2) 2 tabs PO DAILY HPI HPI OV: B/L shoulder, right worse. last inj 03/25/25: Details: 89-year-old female returns to the office today for bilateral shoulder pain. I last saw her in March and injected both shoulders. She states her left shoulder is doing well however the right shoulder injection did not provide her with any relief. She continues to have limitations with daily activities and can not bring her arm to the top of her head without leaning forward. [facility] Medical History Arthritis COVID-19 vaccine series completed Depression Elevated cholesterol HLD (hyperlipidemia) Hypothyroidism Surgical History Hx of cataract extraction History of appendectomy Hx of hysterectomy Social History Are you a primary animal care attendant to a significant other at home: No Do you presently have visiting nurse or other home services: No service: No Current occupational status: retired Review of Systems Const All systems reviewed & are unremarkable except as noted in HPI and below Physical Exam Const General: cooperative and no acute distress Orientation/consciousness: patient oriented x3 Resp Effort & Inspection: normal respiratory effort and able to speak in complete sentences Cardio Peripheral pulses: Peripheral pulses 2+ throughout Neuro General: patient oriented x3 Extrem Other: Right shoulder normal to inspection. Difficulty bringing her hand to the back of her head. Neurovascularly intact. Office Procedures AMB Joint Injection/Aspiration Joint Injection/Aspiration Primary Site: right shoulder Prep: site was prepped using aseptic technique, ethochloride spray was applied and injection warnings given Injected: 40 mg of, with 3 mL of, 1% plain lidocaine, 0.25% bupivacaine, in the subcromial space and decadron Approach Used: posterolateral Procedure: The patient tolerated the procedure well and there was some relief with the local anesthesia Coding 81164 - Glenohumeral/Tronchanteric Bursa/Intraarticular Procedure code (CPT) selection complete Results Reviewed Results Reviewed: X-rays of the right shoulder obtained in the office today and reviewed by me show severe glenohumeral joint arthritis Assessment & Plan Assessment & Plan (1) Osteoarthritis of right shoulder: Code(s): M19.011 - Primary osteoarthritis, right shoulder Category: Medical Plan: I explained to the patient today the extent of her osteoarthritis and options available to her given the last injection was not helpful and she continues to have limitations with daily activities. We briefly discussed the role of total shoulder arthroplasty. She did have right hip arthroplasty with Dr. Miller in the past which was successful. I also explained to the patient the option of a glenohumeral joint injection versus a subacromial injection. I do think a glenohumeral joint injection may benefit her more given her arthritis. Patient would like to try the subacromial injection in the office today. We did proceed with this injection which she tolerated well. I did place an order for a glenohumeral joint injection to be done in 3 months on the right shoulder. 2-3 weeks after she has this glenohumeral joint injection, if she continues to have pain she will contact me to make an appointment to discuss further options and this should be made on a day that Dr. Miller is in the office. If she has relief with the glenohumeral joint injection, she can contact me and I will book her another 1 in 3 months. Orders: Orders XR shoulder RT min 2V Today M25.511 - Pain in right shoulder FL Guided Asp Inj Major Jt RT 09/23/25 M19.011 - Primary osteoarthritis, right shoulder Coding Level of Care Code Est Pt Level 3 (56415) Complex EM visit Add On G2211 Diagnoses Osteoarthritis of right shoulder M19.011 CPT Codes Coding - Joint 7: 14189 - Glenohumeral/Tronchanteric Bursa/Intraarticular ([id number])
== END 2025-06-26 13:59 | disposition home or self-care (01) ==
LOC: HO.HOS 12:49
PROVIDERS: Visit Provider Physician Assistant
DX: M19.011 Primary osteoarthritis, right shoulder (principal)
CPT/HCPCS: 20610; 99213

== ENCOUNTER → 2025-06-26 12:51 | Outpatient (BNV) | payer MEDICARE, SELFPAY | PROVIDERS: Visit Provider Radiology Diagnostic Ultrasound | DX: M19.011 Primary osteoarthritis, right shoulder (principal) | CPT/HCPCS: 73030 ==

== ENCOUNTER 2025-07-18 12:21 | Outpatient (REF) | payer MEDICARE, SELFPAY ==
--- OUTSIDE RECORDS SUMMARY | 2024-04-09 04:30 | XMS_ITS ---
Author Organization [facility] [address] Address [address] [place] [address] Care Team Providers Care Interactive Producer Name Role Phone JOSE SUNITAVARGHESE Unavailable [phone] JESUSITA ALMONTE Unavailable [phone] Encounters Encounter Location Date Provider Diagnosis [facility] [address] [place] [address] 04/09/2024 JESUSITA ALMONTE Plan Of Treatment Next Appt Details Provider Name:ANDRIY ALMONTE, 12:15:00 PM, [address], [place], [address], Progress Notes * CARI TERRYOB:[birth year] (80 yo F)Acc No.[id number]:04/09/2024 Patient: CARI KEARNEY Provider: Ada Almonte MD :1945 A ge:78 Y S ex:Female Date:04/09/2024 Address: [address] [place], [place] Subjective: * Chief Complaints: * * Medical History: Objective: * Vitals: Assessment: Plan: * Treatment: * Images: Billing Information: * Visit Code: * Procedure Codes: Care Plan Details* * Electronic signature of HERIBERTO ALMONTE MD on 07/18/2025 at 03:13 PM EDT Sign off status: Pending * Provider: Ada Almonte MD Date: 0 04/09/2024 Generated for Krish zamora/Mavis/eTransmdigna on: 03:13 PM EDT
--- NOTE | ~2025-07-18 | FL_ITS ---
EXAMINATION: Fluoroscopy-guided right shoulder steroid injection. CLINICAL INDICATION: Significant osteoarthritis. COMPARISON: Right shoulder 06/26/2025 TECHNIQUE: Following explaining fluoroscopy-guided right shoulder steroid injection procedure, benefits and risk, a written consent was obtained. Patient was placed supine on fluoroscopy table and marker was placed along the anterior shoulder joint under fluoroscopy. The marked site was cleaned and draped in usual sterile manner with 2% chlorhexidine solution. 1% lidocaine was injected puncture site. A 20-gauge needle was then inserted from the marked site into the inferior glenohumeral joint space and 2 mL of nonionic contrast was injected. A single image was obtained for documentation. Subsequently 80 mg of Depo-Medrol and 5 mL of 1% lidocaine was injected and needle withdrawn. Complete hemostasis achieved at puncture site. Simple Band-Aid applied postprocedure. FINDINGS: Preliminary images obtained of fluoroscopy-guided is severe loss of right hip joint space with moderate osteophyte formation. There is contrast visualized in the right hip joint space. Approximately 80 mg of Depo-Medrol and 5 mL of 1% lidocaine was injected. FL/FL Guided Asp Inj Major Jt RT IMPRESSION: Successful fluoroscopy-guided right shoulder steroid injection performed. Fluoroscopy time: 40 seconds. DAP: 224.2 mGy/cm. Electronically signed by: Jose Martin Vang MD 07/18/2025 03:49 PM EDT
--- OUTSIDE RECORDS SUMMARY | 2025-07-18 15:13 | XMS_ITS | Patient Health Record ---
Author Organization [facility] [address] Address [address] [place] [address] Care Team Providers Care Mason Liner Name Role Phone ANDRIY GARCIA Unavailable [phone] Allergies No Known Allergies Results Component Value Reference Range Notes Comp. Metabolic Panel (14)- Reviewed date:08/02/2024 10:57:54 AM Interpretation: Performing Lab:[facility] [place], [address] [facility], Phone - [phone], Director - MDJodry Notes/Report: Glucose 104 70-99 mg/dL BUN 16 [...] 0-40 IU/L ALT (SGPT) 13 0-32 IU/L Comp. Metabolic Panel (14)- Reviewed date:05/29/2025 11:14:29 AM Interpretation: Performing Lab:[facility] [place], [address], [place], Phone - [phone], Director - MDJodry Notes/Report: Glucose 99 70-99 mg/dL BUN 11 [...] IU/L ALT (SGPT) 16 0-32 IU/L Lipid Panel-[id number] Reviewed date:05/29/2025 11:07:52 AM Interpretation: Performing Lab:[facility], [address], [place], Phone - [phone], Director - Brayden Notes/Report: Cholesterol, Total 164 100-199 mg/dL Triglycerides 130 0-149 mg/dL HDL Cholesterol 75 >39 mg/dL VLDL Cholesterol Jorge 22 5-40 mg/dL LDL Chol Calc (NIH) 67 0-99 mg/dL Lipid Panel-[id number] Reviewed date:08/02/2024 10:57:39 AM Interpretation: Performing Lab:[facility] [place], [address] [facility], [place], Phone - [phone], Director - Brayden Notes/Report: Cholesterol, Total 201 100-199 mg/dL Triglycerides 74 0-149 mg/dL HDL Cholesterol 111 >39 mg/dL VLDL Cholesterol Jorge 13 5-40 mg/dL LDL Chol Calc ([facility]) 77 0-99 mg/dL Vitamin D, 29-Bmnuwbp-[id number] Reviewed date:08/02/2024 11:08:35 AM Interpretation: Performing Lab:[facility] [place], [address] [facility], [place], Phone - [phone], Director - Brayden Notes/Report: Vitamin D, 25-Hydroxy 46.2 30.0-100.0 ng/mL Vitamin D deficiency has been defined by the [place] of [employer] and an Endocrine Society practice guideline as a level of serum 25-OH vitamin D less than 20 ng/mL (1,2). The Endocrine Society went on to further define vitamin D insufficiency as a level between 21 and 29 ng/mL (2). 1. IOM ([place] of [employer]). 2010. Dietary reference intakes for calcium and D. [place]: The National Academies Press. 2. Bradford REBOLLEDO, Anat GOODMAN, Jennifer BEAL, et al. Evaluation, treatment, and prevention of vitamin D deficiency: an Endocrine Society clinical practice guideline. JCEM. 2010; 96(7):1911-30. Vitamin D, 42-Ncoqofx-[id number] Reviewed date:05/29/2025 11:07:52 AM Interpretation: Performing Lab:[facility] [place], [address] [facility], Phone - [phone], Director - Brayden Notes/Report: Vitamin D, 25-Hydroxy 30.3 30.0-100.0 ng/mL Vitamin D deficiency has been defined by the [place] of [employer] and an Endocrine Society practice guideline as a level of serum 25-OH vitamin D less than 20 ng/mL (1,2). The Endocrine Society went on to further define vitamin D insufficiency as a level between 21 and 29 ng/mL (2). 1. IOM ([place] [employer]). 2010. Dietary reference intakes for calcium and D. [place]: The National Academies Press. 2. Anat Thompson, Jennifer BEAL, et al. Evaluation, treatment, and prevention of vitamin D deficiency: an Endocrine Society clinical practice guideline. JCEM. 2010; 96(6):1911-30. CBC With Differential/Platel et-[id number] Reviewed date:05/29/2025 11:07:52 AM Interpretation: Performing Lab:[facility], [address] [facility], Phone - [phone], Director - Brayden Notes/Report: WBC 5.9 3.4-10.8 [...] % Immature Grans (Abs) 0.0 0.0-0.1 x10E3/uL TSH-[id number] Reviewed date:06/10/2025 09:00:30 AM Interpretation: Performing Lab:[facility], [address] [facility], [place], Phone - [phone], Director - Brayden Notes/Report: TSH 0.514 0.450-4.500 uIU/mL TSH-[id number] Reviewed date:11/30/2024 08:47:17 AM Interpretation: Performing Lab:[facility], [address] [facility], [place], Phone - [phone], Director - MDJodry Notes/Report: TSH 0.480 0.450-4.500 [...] Status W/U Status Risk Notes Problem Hypothyroidism (97267086) Hypothyroidism, unspecified (E03.9) Active confirmed Problem Vitamin D deficiency (33137589) Vitamin D deficiency, unspecified (E55.9) Active confirmed Problem Hyperlipidemia (89586490) Hyperlipidemia, unspecified (E78.5) Active confirmed Problem Age-related osteoporosis (517438406) Age-related osteoporosis without current pathological fracture (M81.0) Active confirmed Problem Adult health examination (665248128) Encounter for general adult medical examination without abnormal findings (Z00.00) Active confirmed Problem Endocrine/metaboli c screening (406906834) Encounter for screening for other suspected endocrine disorder (Z13.29) Active confirmed Problem Morbid obesity (324457268) Morbid obesity (E66.01) Active confirmed Problem Anxiety (22756691) Anxiety (F41.9) Active confi rmed Problem Depressive disorder (disorder) (38013049) Depression, unspecified depression type (F32.9) Active confirmed Problem Hypothyroidism (07244818) Hypothyroidism, unspecified type (E03.9) Active confirmed Problem Arthritis (9169155) Arthritis (M19.90) Active confirmed Problem Annual health maintenance examination (03417209) Annual physical exam (Z00.00) Active confirmed Problem Pre-surgery evaluation (531397048) Pre-op exam (Z01.818) Active confirmed Problem Vitamin D deficiency (05845818) Vitamin D deficiency (E55.9) Active confirmed Problem Age-related osteoporosis (421021360) Osteoporosis without current pathological fracture, unspecified osteoporosis type (M81.0) Active confirmed Problem History of right hip replacement (0519576680797758) History of right hip replacement (Z96.641) Active confirmed Problem Lipid screening (345282250) Lipid screening (Z13.220) Active confirmed Vital Signs Heart Rate 93 /min 06/05/2025 Oximetry 96 % 06/05/2025 Blood pressure diastolic 72 mm Hg 06/05/2025 Height 65 in 06/05/2025 Blood pressure systolic 120 mm Hg 06/05/2025 Weight 143.2 lbs 06/05/2025 BMI 23.83 kg/m2 06/05/2025 Encounters Encounter Location Date Provider Diagnosis [facility] [address] [place], [place] 08/01/2024 ANDRIY GARCIA Osteoporosis with cu rrent pathological fracture with routine healing, unspecified osteoporosis type, subsequent encounter M80.00XD ; Hyperlipidemia, unspecified E78.5 ; Hypothyroidism, unspecified E03.9 ; Morbid obesity E66.01 and Elevated liver enzymes R74.[address] [facility] [address] [place], [place] 12/05/2024 ANDRIY GARCIA Annual physical exam Z00.00 and Other specified counseling Z71.[address] [facility] [address] [place], [place] 06/05/2025 ANDRIY GARCIA Rectal bleed K62.5 ; Blood pressure check Z01.30 ; Hyperlipidemia, unspecified E78.5 ; Hypothyroidism, unspecified type E03.9 and Arthritis M19.[address] [facility] [address] [place], [place] 08/02/2024 ANDRIY GARCIA Hypothyroidism, unspecified type E03.9 and Compression fracture of T12 vertebra, initial encounter S22.080A [facility] [address] [place] [address] [place] [phone] 08/09/2024 ANDRIY GARCIA [facility] [address] [place] [address] 08/09/2024 ANDRIY GARCIA [facility] [address] [place] [address] 12/06/2024 ANDRIY GARCIA Hypothyroidism, unspecified type E03.9 and Compression fracture of T12 vertebra, initial encounter S22.080A [facility] [address] [place] [address] 04/15/2025 ANDRIY GARCIA Compression fracture of T12 vertebra, initial encounter S22.080A [facility] [address] [place] [address] 06/05/2025 ANDRIY GARCIA Assessments Encounter Date Diagnosis (ICD Code) Assessment Notes Treatment Notes Treatment Clinical Notes Section Notes 08/01/2024 Osteoporosis with current pathological fracture with routine healing, unspecified osteoporosis type, subsequent encounter (ICD-10 - M80.00XD) Patient lives independently, has a 40-year-old son living in [place]. #Elevated alkaline phosphatase in September 2023 decreasing Lipitor from 40 mg daily to 40 mg every other day, adding Mcdaniels liquid,The liver enzymes have normalized in January [...] independently, has a 40-year-old son living in [place]. #Shoulder arthritis chronic recent cortisone shot with no effect. We discussed a follow-up with orthopedics or physical therapy. Patient interested in seeing a datawarehouse developer for strength training. We discussed to call us back if there is no improvement. Patient understands and agrees with the plan #Elevated alkaline phosphatase in September 2023 decreasing Lipitor from 40 mg daily to 40 mg every other day, adding Mcdaniels liquid,The liver enzymes have normalized in January [...] independently, has a 40-year-old son living in [facility]#Traumatic fall in summer 2023 leading to hospitalization [...] to 40 mg every other day, adding Mcdaniels liquid,The liver enzymes have normalized in January [...] independently, has a 40-year-old son living in [facility]#Traumatic fall in summer 2023 leading to hospitalization [...] to 40 mg every other day, adding Mcdaniels liquid,The liver enzymes have normalized in January [...] independently, has a 40-year-old son living in [facility]#Traumatic fall in summer 2023 leading to hospitalization [...] to 40 mg every other day, adding Mcdaniels liquid,The liver enzymes have normalized in January [...] independently, has a 40-year-old son living in [place]. #Elevated alkaline phosphatase in September 2023 decreasing Lipitor from 40 mg daily to 40 mg every other day, adding Mcdaniels liquid,The liver enzymes have normalized in January [...] independently, has a 40-year-old son living in [place]. #Shoulder arthritis chronic recent cortisone shot with no effect. We discussed a follow-up with orthopedics or physical therapy. Patient interested in seeing a datawarehouse developer for strength training. We discussed to call us back if there is no improvement. Patient understands and agrees with the plan #Elevated alkaline phosphatase in September 2023 decreasing Lipitor from 40 mg daily to 40 mg every other day, adding Mcdaniels liquid,The liver enzymes have normalized in January [...] independently, has a 40-year-old son living in [place]. #Elevated alkaline phosphatase in September 2023 decreasing Lipitor from 40 mg daily to 40 mg every other day, adding Mcdaniels liquid,The liver enzymes have normalized in January [...] independently, has a 40-year-old son living in [facility]#Traumatic fall in summer 2023 leading to hospitalization [...] to 40 mg every other day, adding Mcdaniels liquid,The liver enzymes have normalized in January [...] independently, has a 40-year-old son living in [facility]#Traumatic fall in summer 2023 leading to hospitalization [...] to 40 mg every other day, adding Mcdaniels liquid,The liver enzymes have normalized in January [...] independently, has a 40-year-old son living in [place]. #Elevated alkaline phosphatase in September 2023 decreasing Lipitor from 40 mg daily to 40 mg every other day, adding Mcdaniels liquid,The liver enzymes have normalized in January [...] independently, has a 40-year-old son living in [place]. #Elevated alkaline phosphatase in September 2023 decreasing Lipitor from 40 mg daily to 40 mg every other day, adding Mcdaniels liquid,The liver enzymes have normalized in January [...] Name:ANDRIY GARCIA, 12:15:00 PM, [address], [place], [address], Insurance Providers Payer Name Payer Address Payer Phone Subscriber Number Group Number Insured Name Patient Relationship to Insured Coverage Start Date Coverage End Date [employer] [place] Medicare Ad[place]age 1 [place], [place] [id number] [id number] [phone] [id number] CARI TERRY Self - patient is the insured 4 Medical (General) History Medical History History ICD Code thyroid disease arthritis kidney stones Surgical History Surgery Date(Month/Year) hysetrectomy hip surgery
== END 2025-07-18 12:22 | disposition home or self-care (01) ==
LOC: HO.XRAY 12:21
PROVIDERS: PCP Internal Medicine; Visit Provider Physician Assistant
DX: M19.011 Primary osteoarthritis, right shoulder (principal)
CPT/HCPCS: 20610; 77002

== ENCOUNTER → 2025-07-18 13:02 | Outpatient (BNV) | payer MEDICARE, SELFPAY | PROVIDERS: PCP Internal Medicine; Visit Provider Radiology Diagnostic Radiology | DX: M19.011 Primary osteoarthritis, right shoulder (principal) | CPT/HCPCS: 20610; 77002 ==